=== PATIENT | female | born 1960 | race Caucasian/White ===

== ENCOUNTER → 2020-06-23 08:34 | Outpatient (CLI) | payer BC, SELFPAY ==
--- NOTE | ~2020-06-23 | MR_ITS ---
EXAMINATION: MR thoracic spine wo con EXAM DATE: 06/23/2020 09:23 INDICATION: Mid thoracic pain. TECHNIQUE: Multi-sequential, multiplanar MR images of the thoracic spine were obtained without contra st. Sagittal T1, T2, T2 fat saturation, axial T2 weighted images reviewed. Comparison is made to gregg or examination from 08/05/2018. FINDINGS: Again there is mild to moderate chronic compression fracture of L1 at the superior endplate . Cervicothoracic vertebral body heights are maintained. There is mild mid and lower thoracic disc di sease with small bulges and protrusions, but no appreciable central canal stenosis. The neural forami na are also widely patent. Mild diffuse thoracic facet arthropathy. The spinal cord signal intensity and intrinsic morphology is normal. Paraspinal soft tissue is unremarkable. IMPRESSION: 1. Mild thoracic spondylosis. 2. Chronic L1 mild to moderate compression unchanged. Reviewed, dictated and finalized at location A. [employer] PROJECTIONIST
== END ==
PROVIDERS: PCP Internal Medicine; Visit Provider Nurse Practitioner Family
DX: M54.6 Pain in thoracic spine (principal); M47.814 Spondylosis without myelopathy or radiculopathy, thoracic region
CPT/HCPCS: 72146

== ENCOUNTER 2022-01-30 00:44 | Day surgery (SDC) | payer BC, SELFPAY ==
[2022-01-11 13:45] VITALS: BMI 22.6
--- NOTE | 2022-01-29 15:34 | P.HP_ITS ---
History of Present Illness History of Present Illness Consent: Risks, benefits, and alternatives have been discussed and questions answered. Patient agrees to proceed with procedure. Chief complaint: hx colon polyps Narrative: Zhanna Perla is a 61 year old female referred for colon cancer screening. She had an adenomatous polyp removed about 7 years ago. Review of Systems Review of Systems: All systems reviewed & are unremarkable except as noted in HPI and below PMFSH Past Medical History Medical History Age-related osteoporosis without current pathological fracture Allergies LISET positive (~05/2020) Degenerative joint disease of cervical and lumbar spine Head ache Inflammatory arthritis Osteoporosis Restless leg syndrome Surgical History Surgical History H/O wrist surgery Family History Family History Mother Failure to thrive Father Heart disease Congestive heart failure Sibling Heart disease Social History Social History Smoking status: Former smoker Alcohol intake: never Substance use: current Substance use type: other Other substance usage details: [facility] Living arrangements: with family Spiritual care concerns: No Meds Home Medications and Allergies Home Medications Medication Instructions Recorded Confirmed Type alendronate 70 mg tablet 70 mg PO WEEKLY 01/21/20 01/11/22 History calcium ohk-J5-S-mag 1 tablet PO BID 01/21/20 01/11/22 History vj-tsjbzf-tjdcrc 250 mg calcium-500 unit tablet diphenhydramine HCl 25 mg capsule 25 mg PO TID PRN Itching 01/21/20 01/11/22 History gabapentin 600 mg tablet 600 mg PO BID #180 tabs 10/18/21 01/11/22 Rx methocarbamol 750 mg tablet 750 mg PO TID PRN muscle spasm #90 10/18/21 01/11/22 Rx tabs diclofenac sodium 50 mg 50 mg PO BID #60 tabs 11/06/21 01/11/22 Rx tablet,delayed release Allergies Allergy/AdvReac Type Severity Reaction Status Date / Time No Known Allergies Allergy Verified 01/30/22 06:25 Exam Resp: Auscultation: clear to auscultation bilaterally Cardio: Rate: regular rate Rhythm: regular rhythm GI: GI Palp: Yes Soft to palpation and No Tenderness to palpation present (GI) Assessment and Plan Assessment and plan (1) Colon cancer screening: Code(s): Z12.11 - Encounter for screening for malignant neoplasm of colon Status: Acute Assessment and Plan: Colonoscopy with possible biopsy or polypectomy or cautery or injection of substances.
[2022-01-30 06:25] VITALS: BP 127/71; PULSE 75; RESP 18; TEMP 36.2; O2SAT 100
[2022-01-30] MEDS: LACTATED RINGERS 1,000 ML 150 ML IV CONT (06:44)
--- NOTE | 2022-01-30 07:20 | P.PNAN_ITS ---
Anes - Initial Pre Proc Eval Procedure: Operation Date: 01/30/22 07:30 Proposed Procedures p Screening Colonoscopy - Alfredo Haywood MD Date/Time: 01/30/22 07:20 Surgeon: Alfredo Haywood MD Pre Op Diagnosis: hx colon polyps Patient Data Age: 61 Gender: F Height: 1.68 m Weight: 64.6 kg Last Vital Signs Temp 97.1 F L 01/30/22 06:25 Pulse 75 01/30/22 06:25 Resp 18 01/30/22 06:25 BP 127/71 01/30/22 06:25 Pulse Ox 100 01/30/22 06:25 O2 Del Method Room Air 01/30/22 06:25 Allergies Allergy/AdvReac Type Severity Reaction Status Date / Time No Known Allergies Allergy Verified 01/30/22 06:25 Home Medications Medication Instructions Recorded Confirmed Type alendronate 70 mg tablet 70 mg PO WEEKLY 01/21/20 01/11/22 History calcium izy-E8-Q-mag 1 tablet PO BID 01/21/20 01/11/22 History ys-onwtqj-pfaalb 250 mg calcium-500 unit tablet diphenhydramine HCl 25 mg capsule 25 mg PO TID PRN Itching 01/21/20 01/11/22 History gabapentin 600 mg tablet 600 mg PO BID #180 tabs 10/18/21 01/11/22 Rx methocarbamol 750 mg tablet 750 mg PO TID PRN muscle spasm #90 10/18/21 01/11/22 Rx tabs diclofenac sodium 50 mg 50 mg PO BID #60 tabs 11/06/21 01/11/22 Rx tablet,delayed release Patient hx anesthesia problems: none Family hx anesthesia problems: none Results Review: All pre-operative results and documents have been reviewed as part of the pre- operative evaluation. [facility] Past Medical History Medical History Age-related osteoporosis without current pathological fracture Allergies LISET positive (~05/2020) Degenerative joint disease of cervical and lumbar spine Head ache Inflammatory arthritis Osteoporosis Restless leg syndrome Surgical History Surgical History H/O wrist surgery Family History Family History Mother Failure to thrive Father Heart disease Congestive heart failure Sibling Heart disease Social History Social History Smoking status: Former smoker Alcohol intake: never Substance use: current Substance use type: other Other substance usage details: [employer] Living arrangements: with family Spiritual care concerns: No Anes - Eval Final PreProcedure Day of Procedure 01/30/22 07:20 Patient weight: normal Heart: regular rate and rhythm Lungs: clear to auscultation Airway: Mallampati scale class II Neurological: alert and oriented Last oral intake: >/= 8 hours ASA classification: II Emergent: no Anesthetic plan: proceed Anesthesia type and monitoring: general GIVS and standard monitoring Results Review: All pre-operative results and documents have been reviewed as part of the pre- operative evaluation. Informed Consent: The patient's anesthetic plan and its attendant risks and benefits were discussed with the patient/family/POA. Questions were solicited and answers provided to the satisfaction of the patient/family/POA.
[2022-01-30 07:50] VITALS: BP 109/55; PULSE 74; RESP 17; O2SAT 98
[2022-01-30 08:00] VITALS: BP 116/64; PULSE 72; RESP 20; O2SAT 100
[2022-01-30 08:08] VITALS: BP 108/59; PULSE 70; RESP 23; O2SAT 100
== END 2022-01-30 08:21 | disposition home or self-care (01) ==
PROVIDERS: PCP Internal Medicine; Visit Provider Internal Medicine Gastroenterology
PROC: 0DJD8ZZ Inspection of Lower Intestinal Tract, Via Natural or Artificial Opening Endoscopic (ICD-10-PCS; CPT 45378; principal; 2022-01-30 07:30)
DX: Z12.11 Encounter for screening for malignant neoplasm of colon (principal); Z86.010 Personal history of colon polyps; M81.0 Age-related osteoporosis without current pathological fracture; G25.81 Restless legs syndrome; M47.812 Spondylosis without myelopathy or radiculopathy, cervical region; M47.816 Spondylosis without myelopathy or radiculopathy, lumbar region
CPT/HCPCS: 45378; J2704; J7120

== ENCOUNTER 2023-05-24 08:04 | Outpatient (CLI) | payer BC, SELFPAY ==
--- NOTE | 2023-05-24 08:27 | ECG_ITS ---
Measurements Intervals [place] Rate: 79 P: 66 [place]: 112 QRS: 55 QRSD: 81 T: 42 QT: 364 QTc: 418 Interpretive Statements SINUS RHYTHM WITH SHORT [place] INTERVAL BASELINE WANDER- V1-V2 BORDERLINE ECG NO PREVIOUS ECG AVAILABLE FOR COMPARISON Electronically Signed On 05-24-2023 15:11:18 [employer] SAL[employer] by Parth Thomas D.O.
== END 2023-05-24 08:05 | disposition home or self-care (01) ==
PROVIDERS: PCP Internal Medicine; Visit Provider Podiatrist Foot & Ankle Surgery
DX: Z01.818 Encounter for other preprocedural examination (principal); R94.31 Abnormal electrocardiogram [ECG] [EKG]
CPT/HCPCS: 93005

== ENCOUNTER 2023-06-25 08:16 | Outpatient (CLI) | payer BC, SELFPAY ==
--- NOTE | ~2023-06-25 | US_ITS ---
EXAMINATION: US abdomen limited DATE: 06/25/2023 08:37 INDICATION: Elevated liver enzymes TECHNIQUE: Multiple grayscale and Doppler ultrasound images of the abdomen were obtained. COMPARISON: None available FINDINGS: The head, body, and tail of the pancreas are normal. The liver is normal with normal echoge nicity and echotexture. No surface nodularity. Normal hepatopetal flow in the main portal vein. The g allbladder is normal with no abnormal wall thickening, pericholecystic fluid or stones. The normal co mmon bile duct measures 5 mm. There was no sonographic Sanches sign. IMPRESSION: 1. No sonographic correlate for the patient's symptoms. Reviewed, dictated and finalized at location B. CHER
== END 2023-06-25 08:17 | disposition home or self-care (01) ==
LOC: ANHIMG 08:18
PROVIDERS: PCP Internal Medicine; Visit Provider Internal Medicine Gastroenterology
DX: R74.8 Abnormal levels of other serum enzymes (principal)
CPT/HCPCS: 76705

== ENCOUNTER 2024-01-14 08:59 | Outpatient (CLI) | payer BC, SELFPAY ==
[2024-01-14 09:45] LABS: Alanine Aminotransferase 30 U/L (6-35); Albumin Level 4.3 g/dL (3.5-5.1); Alkaline Phosphatase 80 U/L (38-126); Aspartate Amino Transferase 30 U/L (14-36); Bilirubin,Total 0.4 mg/dL (0.2-1.3)
== END 2024-01-14 09:00 | disposition home or self-care (01) ==
LOC: ANHLAB 09:01
PROVIDERS: PCP Internal Medicine; Visit Provider Internal Medicine Gastroenterology
DX: R74.8 Abnormal levels of other serum enzymes (principal)
CPT/HCPCS: 36415; 80076

== ENCOUNTER 2024-02-06 00:32 | Inpatient (IN) | payer BC, SELFPAY ==
[2024-02-06] VITALS (34 sets, daily range): BP systolic 104–158; BP diastolic 56–104; PULSE 68–109; RESP 12–20; TEMP 36.3–36.7; O2SAT 97–100; BMI 24.7
--- NOTE | 2024-02-06 | ECHO_ITS ---
Patient Info Name: Zhanna Perla Age: 63 years : 1960 Gender: Female Ht: 65 in Wt: 153 lbs BSA: 1.80 m2 HR: 76 bpm Heart Rhythm: Sinus Rhythm Technical Quality: Fair Exam Date: 02/06/2024 3:38 PM Exam Location: Echo Lab Patient Status: Inpatient Admit Date: 02/06/2024 Staff Ordering Physician: Gregory Massey MD ([facility]) Screwhead Polisher: Ever Horn RDCS Attending Provider: Sierra Howard MD Exam Type: CA echo doppler color flow Study Info Indications - ACS Complete two-dimensional, color flow and Doppler transthoracic echocardiogram is performed. Summary 1. Complete two-dimensional, color flow and Doppler transthoracic echocardiogram is performed. 2. Left ventricular chamber dimension is normal. 3. Left ventricular systolic function is normal, estimated at 65-70%. 4. Right ventricular chamber dimension is normal. 5. Right ventricular systolic function is normal. 6. There is mild to moderate aortic valve regurgitation. Left Ventricle Left ventricular chamber dimension is normal. Left ventricular systolic function is normal, estimated at 65-70%. There is no increased left ventricular wall thickness. Left ventricular septal wall motion is normal. The left ventricular diastolic function is normal. Right Ventricle Right ventricular chamber dimension is normal. Right ventricular systolic function is normal. Left Atria Left atrial chamber dimension is normal. Right Atria Right atrial chamber dimension is normal. Aortic Valve The aortic valve is trileaflet. There is no aortic valve sclerosis. There is no aortic valve stenosis. There is mild to moderate aortic valve regurgitation. Pulmonic Valve The pulmonic valve is not well visualized. There is no pulmonic valve stenosis. There is no pulmonic regurgitation. Mitral Valve The mitral valve has normal leaflets. There is no mitral valve stenosis. There is no mitral valve regurgitation. Tricuspid Valve The tricuspid valve leaflets are normal. There is no significant tricuspid valve stenosis. There is no tricuspid valve regurgitation. No pulmonary hypertension, estimated pulmonary arterial systolic pressure is 26 mmHg. Pericardium/Pleural The pericardium appears normal. There is no pericardial effusion. Inferior Vena Cava Normal inferior vena cava with >50% collapse upon inspiration consistent with normal right atrial pressure, 10 mmHg. Aorta The aortic root size at the sinus of Valsalva is normal. The prox ascending aorta size is normal. Left Ventricular Outflow Tract Name Value Normal LVOT 2D LVOT Diameter 1.8 cm LVOT Doppler LVOT Peak Gradient 6 mmHg LVOT Mean Gradient 3 mmHg LVOT VTI 31 cm LVOT VTI/AV VTI Ratio 1.0 LVOT Stroke Volume 77 ml LVOT CO 5.8 l/min LVOT CI 3.2 l/min/m2 Mitral Valve Name Value Normal MV
--- NOTE | ~2024-02-06 | CT_ITS ---
CT of the Abdomen and Pelvis: Indication: Abdominal pain Technique: 2.5 mm axial scans were obtained through the abdomen and pelvis following intravenous adm inistration of 100 cc of Omnipaque 350. Dose reduction technique was used on this scan by utilizing a utomated exposure control and iterative reconstruction technique. The dose-length product (DLP) was 3 91.43 mGy-cm. Findings: Scans through the lung bases demonstrate 5 mm right lower lobe pulmonary nodule (axial gaby ge 15). Partially imaged probable small pericardial effusion present. The liver, spleen, pancreas, gallbladder, adrenals and kidneys are within normal limits. No evidence of aortic aneurysm. No lymphadenopathy. No bowel obstruction or bowel wall thickening. There is no evidence to suggest acute appendicitis. Images through the pelvis were performed. Urinary bladder unremarkable. No adnexal mass seen. No asci juanita. Chronic L1 compression deformity present. Impression: Partially imaged probable small pericardial effusion. No other acute abnormality seen. 5 mm right lower lobe pulmonary nodule. According to Fleischner Society criteria, for a low-risk mario ent, no further follow-up required. For a high-risk patient, consider 12 month follow-up CT. Probable chronic L1 compression deformity. Reviewed, dictated and finalized at location . Impression: Partially imaged probable small pericardial effusion. No other acute abnormality seen. 5 mm right lower lobe pulmonary nodule. According to Fleischner Society criteri a, for a low-risk patient, no further follow-up required. For a high-risk patie nt, consider 12 month follow-up CT. Probable chronic L1 compression deformity.
--- NOTE | ~2024-02-06 | XR_ITS ---
Clinical Indication: Chest pain PA and lateral views of the chest: Comparison: 06/27/2018 Findings: The lungs are clear, without evidence of focal consolidation or pleural effusion. Possible COPD. Cardiomediastinal silhouette is within normal limits. Bones and soft tissues are unremarkable. Impression: Possible COPD. Clear lungs. Reviewed, dictated and finalized at location . Impression: Possible COPD. Clear lungs.
--- NOTE | 2024-02-06 00:33 | ECG_ITS ---
Test Date: 2024-02-06 00:39:44 Measurements Intervals [place] Rate: 111 P: 59 [place]: 145 QRS: 53 QRSD: 73 T: 48 QT: 336 QTc: 458 Interpretive Statements SINUS TACHYCARDIA MODERATE ST DEPRESSION [0.05+ mV ST DEPRESSION] No previous ECG available for comparison Electronically Signed On 02-06-2024 10:40:28 CDT by Gregory Massey M.D.
[2024-02-06 00:59] LABS: Basophils Absolute Auto 0.1 K/mm3 (0.0-0.1); Basophils Percent Auto 0.8 % (0.2-1.2); Eosinophils Absolute Auto 0.2 K/mm3 (0-0.3); Eosinophils Percent Auto 2.7 % (0-4.4); Hematocrit 40.1 % (37.0-47.0); Hemoglobin 13.7 g/dL (12.0-15.0); Immature Granulocyte Absolute 0.03 K/mm3 (0.00-0.031); Immature Granulocyte Percent A 0.5 % (0-0.5); Lymphocytes Absolute Auto 2.08 K/mm3 (0.9-3.2); Lymphocytes Percent Auto 32.8 % (18.3-44.2); Mean Corpuscular HGB Conc 34.2 g/dl (32-36); Mean Corpuscular Hemoglobin 30.9 pg (26-34); Mean Corpuscular Volume 90.3 fl (80-100); Mean Platelet Volume 8.7 fl (7.4-10.4); Monocytes Absolute Auto 0.9 K/mm3 (0.1-0.6); Monocytes Percent Auto 14.4 % (2.6-8.5); Neutrophils Absolute Auto 3.1 K/mm3 (1.3-6.7); Neutrophils Percent Auto 48.8 % (45.5-73.1); Platelet Count Result 272 k/mm3 (150-375); Red Blood Count 4.44 M/mm3 (4.2-5.4); White Blood Count 6.3 K/mm3 (4.5-10.0)
[2024-02-06 01:12] LABS: Prothrombin Time 13.5 Seconds (11.1-14.7)
[2024-02-06 01:13] LABS: Partial Thromboplastin Time 24.8 Seconds (22.3-36.8)
[2024-02-06 01:32] LABS: Troponin I < 0.012 ng/mL (0.000-0.034)
[2024-02-06 01:40] LABS: Alanine Aminotransferase 30 U/L (6-35); Albumin Level 4.4 g/dL (3.5-5.1); Alkaline Phosphatase 104 U/L (38-126); Anion Gap 9 mmol/L (4-12); Aspartate Amino Transferase 30 U/L (14-36); Bilirubin,Total 0.4 mg/dL (0.2-1.3); Blood Urea Nitrogen 10 mg/dL (7-17); Calcium 9.1 mg/dL (8.4-10.2); Carbon Dioxide 25 mmol/L (22-30); Chloride 103 mmol/L (98-107); Estimated CRCL calculation 58 ml/min; Estimated Glomerular Filt Rate > 60; Glucose 55 mg/dL (65-110); Lipase 82 U/L (23-300); Potassium 3.7 mmol/L (3.4-5.0); Sodium 137 mmol/L (137-145)
--- NOTE | 2024-02-06 01:45 | PC.NURSE ---
Patient given some crackers and juice, blood sugar 83.
[2024-02-06 01:46] LABS: Glucose Point of Care 83 mg/dl (65-105)
--- NOTE | 2024-02-06 02:24 | ED.GENADULT ---
HPI - General Adult General Chief complaint: Chest Pain Stated complaint: Chest pain Time Seen by Provider: 02/06/24 01:40 History of Present Illness HPI narrative: Patient 63-year-old female who presents emergency department with chief complaint of chest pain. Patient reports that she woke up started having pain in her chest patient reports that it is significantly improved the patient reports no prior history of cardiac disease but also reports he has discomfort in her abdomen Related Data Home Medications Medication Instructions Recorded Confirmed alendronate 70 mg tablet 70 mg PO WEEKLY 01/21/20 01/20/24 calcium 250 mg-D3 500 unit-vit K 1 tablet PO BID 01/21/20 01/20/24 25 lon-yzxxfqzso-yhxazo-borate tablet Allergies Allergy/AdvReac Type Severity Reaction Status Date / Time No Known Allergies Allergy Verified 01/20/24 10:28 Review of Systems Review of Systems: A 10 system review of systems was completed on the patient and is negative except for what is stated in the HPI. Nursing and ancillary documentation was reviewed. [facility] Past Medical History Medical History Age-related osteoporosis without current pathological fracture Allergies LISET positive (~05/2020) Degenerative joint disease of cervical and lumbar spine Elevated liver enzymes Head ache Inflammatory arthritis Osteoporosis Restless leg syndrome Undifferentiated connective tissue disease Surgical History Surgical History H/O wrist surgery Family History Family History Mother Failure to thrive Father Heart disease Congestive heart failure Sibling Heart disease Social History Social History Smoking status: Former smoker Second hand tobacco smoke exposure: Yes Alcohol intake: current Substance use: current Substance use type: marijuana and other Other substance usage details: [employer] Do You Feel Safe in your Home?: Yes Lack of Transportation: No Lack of Food: Never True Current Housing: I Have Housing Concerned About Future Housing: No Difficulty Paying Gas/Electric Bills: No Difficulty Paying for Meds: No Currently Unemployed: No Education: High School Diploma/GED Difficulty w/ Childcare or Family Care: No Living arrangements: with family Occupation/Education: occupation Additional occupation/education comments: [employer] Gender identity (if verbalized by the patient): Female Spiritual care concerns: No Exam Narrative: GENERAL: Well-appearing, well-nourished, and in no acute distress. HEAD: Normocephalic, atraumatic. EYES: PERRLA and EOMI. ENT: Nares clear, no rhinorrhea or epistaxis. Mucous membranes moist. NECK: Supple. CHEST: Clear to auscultation. No respiratory distress. HEART: Regular rate and rhythm. No murmur heard. Normal peripheral pulses. ABDOMEN: Soft, diffusely tender throughout the abdomen, nondistended, normal active bowel sounds. EXTREMITIES: Normal range of motion. No edema. SKIN: Warm, dry, no rash. NEURO: No focal deficits. Alert and oriented x3. PSYCH: Normal mood and affect. Course Vital Signs Vital signs: Vital Signs Temperature 36.3 C L 02/06/24 00:48 Pulse Rate 109 H 02/06/24 00:48 Respiratory Rate 20 02/06/24 00:48 Blood Pressure 158/104 H 02/06/24 00:48 Pulse Oximetry 100 02/06/24 00:48 Temperature 36.3 C L 02/06/24 00:48 Pulse Rate 90 02/06/24 05:48 Respiratory Rate 15 02/06/24 05:48 Blood Pressure 130/78 02/06/24 05:48 Pulse Oximetry 100 02/06/24 05:48 Oxygen Delivery Room Air 02/06/24 01:54 Medical Decision Making [facility] Narrative Medical decision making narrative: Differential diagnosis includes NSTEMI, STEMI
--- NOTE | 2024-02-06 03:14 | ECG_ITS ---
Test Date: 2024-02-06 03:19:10 Measurements Intervals [place] Rate: 89 P: 61 [place]: 131 QRS: 57 QRSD: 68 T: 65 QT: 347 QTc: 423 Interpretive Statements SINUS RHYTHM Compared to ECG 02/06/2024 00:39:44 Sinus tachycardia no longer present ST (T wave) deviation no longer present Electronically Signed On 02-06-2024 10:40:58 CDT by Gregory Massey M.D.
[2024-02-06 03:58] LABS: Troponin I 0.052 ng/mL (0.000-0.034)
--- NOTE | 2024-02-06 06:18 | ECG_ITS ---
Test Date: 2024-02-06 06:21:21 Measurements Intervals [place] Rate: 84 P: 57 AL: 125 QRS: 45 QRSD: 81 T: 37 QT: 373 QTc: 442 Interpretive Statements SINUS RHYTHM WITH SINUS ARRHYTHMIA Compared to ECG 02/06/2024 03:19:10 No significant changes Electronically Signed On 02-06-2024 10:41:21 CDT by Gregory Massey M.D.
[2024-02-06 06:50] LABS: Troponin I 0.142 ng/mL (0.000-0.034)
--- NOTE | 2024-02-06 07:42 | ADMGEN ---
This patient, Zhanna Perla, was admitted to IMU Room 205-01. Patient/family oriented to hospital policies and general routines including ID bracelet, bed and alarms, visiting hours, pain management, procedures, bathroom and other care routines, personal items, smoking policy, room service/diet, and visiting hours. Information on how to activate the Rapid Response Team has been discussed. Patient/Family are encouraged to report perceived risks to care and to ask questions if they do not understand what they are told or what they should do.
--- NOTE | 2024-02-06 08:00 | PM.IMHP ---
H&P: HPI History of Present Illness Date/Time: 02/06/24 08:00 Chief Complaint: Chest pain Narrative: 63 year old female with past medical history of osteoporosis, DJD, inflammatory arthritis, and RLS presents to the hospital from home with chest pain. She states that the chest pain woke her from her sleep at 12:30 am. She described it as a constant heavy tightness to her central chest with associated shortness of breath and feeling wiped out . She denies diaphoresis or radiation. The chest pain continued for extended period of time and was worsening in severity which prompted the patient to go to the hospital. Patient had a similar episode of chest pain about 1 month ago. She stated that it too was a heavy/tight feeling to the middle of her chest with associated fatigue. The episode last approximately 15 minutes before resolving without any intervention. Patient did not seek treatment. Patient notes that she will have occasional palpitations that resolve with deep breathing. She also endorses increased shortness of breath with exertion, however she related this to be deconditioned secondary to her chronic pain. Patient denies any cardiac history, but does note that her father had a heart attack in his late 50s. Patient denies any recent cough, nausea/vomiting or abdominal pain. During assessment patient states that she is still having slight chest pain but it feels more like heart burn at this point. Patient was evaluated by cardiology and is scheduled to undergo a cardiac cath later today. Returned to patients room after she had her cardiac cath. She has no complaints. Denying chest pain, shortness of breath, and palpitations. ED work up: Vitals stable. CBC and CMP unremarkable. Troponin elevated at 0.052 > 0.142. EKG 1233 sinus tach with mod st depression, EKG [address] abnormality, EKG 0621 sinus rhythm without significant changes. Chest XR: Possible COPD and clear lungs. Abdomen/pelvis CT: Partially imaged probable small pericardial effusion. No other acute abnormality seen. 5 mm right lower lobe pulmonary nodule. According to Fleischner Society criteria, for a low-risk patient, no further follow-up required. For a high-risk patient, consider 12 month follow-up CT. Probable chronic L1 compression deformity. Cardiology consulted. Review of Systems Review of Systems: All systems reviewed & are unremarkable except as noted in HPI and below PMFSH Past Medical History Medical History Age-related osteoporosis without current pathological fracture Allergies LISET positive (~05/2020) Degenerative joint disease of cervical and lumbar spine Elevated liver enzymes Head ache Inflammatory arthritis Osteoporosis Restless leg syndrome Undifferentiated connective tissue disease Surgical History Surgical History H/O wrist surgery Family History Family History Mother Failure to thrive Father Heart disease Congestive heart failure Acute myocardial infarction late 50s Sibling Heart disease Social History Social History (Updated 02/06/24 @ 09:54 by Aruna High PA-C) Social History: Patient lives at home with her . Smoking packs per day: 0.5 Smoking cigarettes per day: 10.0 Years smoked: 8 Smoking pack-years: 4.00 Smoking status: Former smoker Tobacco type: cigarettes Second hand tobacco smoke exposure: Yes Additional smoking assessment comments: Patient smoked about 1/2 from [age]. Alcohol intake: current Alcohol use details: Rare. Substance use: current Substance use type: marijuana Other substance usage details: [employer] Do You Feel Safe in your Home?: Yes Lack of Transportation: No Lack of Food: Never True Current Housing: I Have Housing Concerned About Future Willian
--- NOTE | 2024-02-06 08:39 | PM.CNCAR ---
Assessment and Plan Assessment and plan (1) Chest pain: Code(s): R07.9 - Chest pain, unspecified Status: Acute Assessment and Plan: Presents to the hospital with a chief complaint of substernal chest pain which by description is somewhat atypical. However, her troponin levels have elevated to 0.142 which raises concern for myocardial ischemia. EKG without any acute ischemic changes. She has not had an ischemic evaluation in the past. Recommendation for coronary angiogram today to define her coronary anatomy. Further recommendations to follow. She was not placed on heparin prior to my encounter with her. Will hold off on heparin for now if she is going to the cardiac cath lab technologist shortly. (2) Elevated troponin: Code(s): R79.89 - Other specified abnormal findings of blood chemistry Status: Acute Assessment and Plan: As above. History of Present Illness History of Present Illness Consult date/time: 02/06/24 08:39 Requesting physician: Sabino Kan MD Consult reason: chest pain Reason For Visit: Chest pain,elevated troponin Narrative: Zhanna Perla is a 63-year-old female admitted to the hospital with chest pain and has been found to have elevated troponin levels. This is a patient who does not have any significant medical history, no previous cardiac history. She does have a family history of coronary artery disease in her dad. She reports waking up in the middle night because of a central chest burning/tightness. She had 1 episode of chest pain similar to this about a month ago but she did not seek medical evaluation at that time because she assumed it was indigestion/heartburn. She has been given aspirin and her chest pain has improved but remains present but less intense. She reports having shortness of breath with the onset of chest pain yesterday evening but denies any diaphoresis, radiation of pain, syncope, palpitations. At the time of my evaluation she is resting comfortably in bed and does still have mild chest tightness. Review of Systems Review of Systems: All systems reviewed & are unremarkable except as noted in HPI and below PMFSH Past Medical History Medical History Age-related osteoporosis without current pathological fracture Allergies LISET positive (~05/2020) Degenerative joint disease of cervical and lumbar spine Elevated liver enzymes Head ache Inflammatory arthritis Osteoporosis Restless leg syndrome Undifferentiated connective tissue disease Surgical History Surgical History H/O wrist surgery Family History Family History Mother Failure to thrive Father Heart disease Congestive heart failure Sibling Heart disease Social History Social History Smoking status: Former smoker Second hand tobacco smoke exposure: Yes Alcohol intake: current Substance use: current Substance use type: marijuana and other Other substance usage details: [employer] Do You Feel Safe in your Home?: Yes Lack of Transportation: No Lack of Food: Never True Current Housing: I Have Housing Concerned About Future Housing: No Difficulty Paying Gas/Electric Bills: No Difficulty Paying for Meds: No Currently Unemployed: No Education: High School Diploma/GED Difficulty w/ Childcare or Family Care: No Living arrangements: with family Occupation/Education: occupation Additional occupation/education comments: [employer] Gender identity (if verbalized by the patient): Female Spiritual care concerns: No Meds Home Medications and Allergies Home Medications Medication Instructions Recorded Confirmed Type alendronate 70 mg tablet 70 mg PO WEEKLY 01/21/20 02/06/24 History calcium 250 mg-D3 50
[2024-02-06] MEDS: ASPIRIN 81 MG CHEWABLE TABLET PO (09:54)
--- NOTE | 2024-02-06 10:32 | WPDMODSED ---
Moderate Sedation Note-Pt Data Patient Data Allergies Allergy/AdvReac Type Severity Reaction Status Date / Time No Known Allergies Allergy Verified 01/20/24 10:28 Home Medications Medication Instructions Recorded Confirmed Type alendronate 70 mg tablet 70 mg PO WEEKLY 01/21/20 02/06/24 History calcium 250 mg-D3 500 unit-vit K 1 tablet PO BID 01/21/20 01/20/24 History 25 nvb-lcfdmbcql-ggaeef-borate tablet methocarbamol 750 mg tablet 750 mg PO TID PRN muscle spasm #90 09/04/23 01/20/24 Rx tabs duloxetine 30 mg capsule,delayed 30 mg PO BID #60 caps 09/22/23 01/20/24 Rx release hydroxychloroquine 200 mg tablet 400 mg PO DAILY #60 tabs 09/22/23 01/20/24 Rx (Plaquenil) gabapentin 600 mg tablet 600 mg PO BID 02/06/24 02/06/24 History Current Medications: Active Medications Aspirin (Aspirin 81 Mg Chewable Tablet) 81 mg PO DAILY@0800 XIAO Last Admin: 02/06/24 09:54 Dose: 81 mg Ondansetron HCl (Ondansetron Inj 4 Mg/2 Ml Vial) 4 mg IV PUSH Q4H PRN PRN Reason: Nausea Perflutren Lipid Microsphere (Perflutren Lipid Microspheres 1.5 Ml Vial Diluted To 10 Ml Total Volume) 0 ml IV PUSH ONCE PRN; Protocol PRN Reason: adequate visualization Stop: 02/09/24 10:12 Sedation/Anesthesia: No previous sedation/anesthesia problems (including family history). [facility] Past Medical History Medical History Age-related osteoporosis without current pathological fracture Allergies LISET positive (~05/2020) Degenerative joint disease of cervical and lumbar spine Elevated liver enzymes Head ache Inflammatory arthritis Osteoporosis Restless leg syndrome Undifferentiated connective tissue disease Surgical History Surgical History H/O wrist surgery Family History Family History Mother Failure to thrive Father Heart disease Congestive heart failure Acute myocardial infarction late 50s Sibling Heart disease Social History Social History (Updated 02/06/24 @ 09:54 by Aruna High PA-C) Social History: Patient lives at home with her . Years smoked: 8 Smoking status: Former smoker Tobacco type: cigarettes Second hand tobacco smoke exposure: Yes Additional smoking assessment comments: Patient smoked about 1/2 from 19-27. Alcohol intake: current Alcohol use details: Rare. Substance use: current Substance use type: marijuana Other substance usage details: THC GUMMIES Do You Feel Safe in your Home?: Yes Lack of Transportation: No Lack of Food: Never True Current Housing: I Have Housing Concerned About Future Housing: No Difficulty Paying Gas/Electric Bills: No Difficulty Paying for Meds: No Currently Unemployed: No Education: High School Diploma/GED Difficulty w/ Childcare or Family Care: No Living arrangements: with family Occupation/Education: occupation Additional occupation/education comments: [employer] Gender identity (if verbalized by the patient): Female Spiritual care concerns: No Mod Sed Physical Exam Physical Exam Pre Procedural Exam: Normal: Appearance, Throat, Airway, Lungs, Heart Rate and Heart Rhythm Hours since solid foods: 12 Hours since liquid intake: 4 Mallampati Classification: class II Internal Medicine - PN: Obj Da Vital Signs Vital Signs: Vital Signs - 24 hr 02/06/24 00:48 02/06/24 01:54 02/06/24 01:54 Temperature 36.3 C L Pulse Rate 109 H 89 Respiratory Rate 20 18 Blood Pressure 158/104 H 131/79 Pulse Oximetry 100 100 100 Oxygen Delivery Room Air 02/06/24 02:35 02/06/24 05:48 02/06/24 07:00 Temperature Pulse Rate 88 90 81 Respiratory Rate 19 15 16 Blood Pressure 130/75 130/78 125/70 Pulse Oximetry 100 100 100 Oxygen Delivery 02/06/24 07:34 Temperature 36.4 C L Pulse R
--- NOTE | 2024-02-06 11:06 | WPDCARDPROC ---
Cardiac Cath Procedure Note Date of procedure:: 02/06/24 Performing physician:: CATHETERIZATION LABORATORY REPORT Procedure Date: 02/06/2024 Referring Physician: Dr. High Anesthesia: Versed and Fentanyl were ordered and given in my presence at 1045, procedure ended at 1058. Supervision of nurse monitored moderate sedation with Versed and Fentanyl was provided for 13 minutes. Pre-op Diagnosis: Myocardial injury Post-op Diagnosis: Myocardial injury Procedure(s): Left heart catheterization with coronary angiography Access Site: Right radial artery. TR band used for hemostasis Brief History and Clinical Indications: 63 yo woman with inflammatory arthritis woke up with chest pain whose clinical presentation was concerning for NSTEMI All risks, benefits and alternatives to left heart catheterization with or without percutaneous coronary intervention was discussed at length with the patient. Risk of complications including but not limited to bleeding, infection, arrhythmia, stroke, worsening kidney function, blood loss, groin hematoma, limb loss, emergency coronary artery bypass grafting, and even were discussed with the patient and all questions were answered. The patient understood and wished to proceed. Time out called, patient name, date of , medical record number, allergies, procedure performed, identify [employer] Program Director, patient and staff member concurred with accurate data, procedure carried on. Findings: LEFT HEART CATHETERIZATION FINDINGS: 1. Left main: The left main coronary artery is widely patent without any significant obstructive disease. 2. Left anterior descending: The LAD gives off 1 large diagonal branch, both of which have mild luminal irregularities without any significant obstructive angiographic disease. 3. Left circumflex: The left circumflex artery and the main marginal branches have mild luminal irregularities without any significant obstructive angiographic disease. Left circumflex is the dominant vessel. 4. Right coronary artery: The RCA has mild luminal irregularities without any significant obstructive angiographic disease. 5. Left ventricle: A. End-diastolic pressure 18 mmHg. B. LV gramshows preserved LV systolic function C. No significant gradient across aortic valve on catheter pullback. 6. Opening AO pressure 141/88 (114) and closing AO pressure 101/73 (88) Description of Procedure: Informed consent signed and placed in the chart. Patient transferred to cardiac cath lab technologist room. Prepped and draped in usual sterile fashion. 2% lidocaine injected subcutaneously in right wrist area. 22-gauge venipuncture catheter used to access the right radial artery with the Seldinger technique. 6-FR slender sheath placed in right radial artery. Nitroglycerin 200mcg, Verapamil 2.5mg, and Heparin 5000U was given intraarterial through the sheath. J wire advanced under fluoroscopy 5Fr TIG diagnostic catheter engaged Left Main Coronary Artery. 5Fr TIG diagnostic catheter engaged Right Coronary Artery Multiple orthogonal angiogram obtained and reviewed 5Fr Pigtail diagnostic catheter crossed aortic valve to obtain LVEDP, LV angiogram performed. Hemostasis was achieved by application of TR band. Assessment: No obstructive epicardial disease Post Operative Condition: Stable No significant blood loss Disposition: Floor Plan: Monitor on floors ASA 81mg daily Gregory Massey Interventional Cardiology
--- NOTE | 2024-02-06 15:43 | PC.NURSE ---
Pt returned to 205-1 from skilled labor approx. 1455. Right radial site bandaged, c/d/i. Amy PRITCHETT from skilled labor at bedside, verified site and pulse to establish baseline
[2024-02-06 17:41] LABS: Cholesterol 170 mg/dL (0-200); HDL Direct 53 mg/dL; Triglycerides 66 mg/dL (<150)
[2024-02-06 17:52] LABS: LDL Cholesterol Direct 81 mg/dL
[2024-02-06] MEDS: GABAPENTIN 300 MG CAPSULE 600 MG PO (18:09)
[2024-02-06] MEDS: DULoxetine HCL 30 MG CAPSULE.DR PO (18:09)
[2024-02-06] MEDS: methocarbamoL 750 MG TABLET PO (18:33)
[2024-02-06] MEDS: CALCIUM CARBONATE (TUMS) 500 MG (200 MG ELEMENTAL) PO (21:54)
[2024-02-06] MEDS: PANTOPRAZOLE 40 MG TABLET PO (21:54)
[2024-02-07] VITALS (11 sets, daily range): BP systolic 117–131; BP diastolic 62–68; PULSE 70–86; RESP 15–20; TEMP 36.3–36.6; O2SAT 97–100
--- NOTE | 2024-02-07 08:32 | PM.IMPN ---
Progress Note: A&P Assessment and Plan (1) Chest pain: Code(s): R07.9 - Chest pain, unspecified Status: Acute Assessment and Plan: Patient presented to the hospital for constant heavy/tightness to her chest that was worsening in severity. - Troponin 0.052 > 0.142 - EKG 1233 sinus tach with mod st depression, EKG [address] abnormality, EKG 0621 sinus rhythm without significant changes. - Chest XR: Possible COPD and clear lungs. - Abdomen/pelvis CT: Partially imaged probable small pericardial effusion. No other acute abnormality seen. 5 mm right lower lobe pulmonary nodule. According to Fleischner Society criteria, for a low-risk patient, no further follow-up required. For a high-risk patient, consider 12 month follow-up CT. Probable chronic L1 compression deformity. - Cardiology consulted, appreciate assistance and recommendations Plan for coronary angiogram on 02/05 s/p cardiac cath with Dr. Massey and per his note there was no obstructive epicardial disease ASA 81 mg daily Echo ordered - Diet: heart healthy s/p cath - Monitor vital signs, I&Os, chest pain, shortness of breath and patient is a fall risk - Monitor PTT, serial troponins, Serum electrolytes, and cbc - Keep serum potassium >4 and keep magnesium >2 (2) Elevated troponin: Code(s): R79.89 - Other specified abnormal findings of blood chemistry Status: Acute Assessment and Plan: see above #1 (3) Inflammatory arthritis: Code(s): M19.90 - Unspecified osteoarthritis, unspecified site Status: Acute Assessment and Plan: Chronic, continue home medications. - Duloxetine 30 mg BID - Gabapentin 600 mg BID - Methocarbamol 750 mg TID PRN - monitor Plan noted BS 55 this am on BMP. pt is not known diabetic. will add AccuCheck to monitor it closer and hypoglycemia protocol Time Spent With Patient Time with patient: Greater than 35 minutes Subjective Date/time seen: 02/07/24 08:32 Interval history: Chest pain Narrative retrieved from H/P: 63 year old female with past medical history of osteoporosis, DJD, inflammatory arthritis, and RLS presents to the hospital from home with chest pain. She states that the chest pain woke her from her sleep at 12:30 am. She described it as a constant heavy tightness to her central chest with associated shortness of breath and feeling wiped out . She denies diaphoresis or radiation. The chest pain continued for extended period of time and was worsening in severity which prompted the patient to go to the hospital. Patient had a similar episode of chest pain about 1 month ago. She stated that it too was a heavy/tight feeling to the middle of her chest with associated fatigue. The episode last approximately 15 minutes before resolving without any intervention. Patient did not seek treatment. Patient notes that she will have occasional palpitations that resolve with deep breathing. She also endorses increased shortness of breath with exertion, however she related this to be deconditioned secondary to her chronic pain. Patient denies any cardiac history, but does note that her father had a heart attack in his late 50s. Patient denies any recent cough, nausea/vomiting or abdominal pain. During assessment patient states that she is still having slight chest pain but it feels more like heart burn at this point. Patient was evaluated by cardiology and is scheduled to undergo a cardiac cath later today. Returned to patients room after she had her cardiac cath. She has no complaints. Denying chest pain, shortness of breath, and palpitations. ED work up: Vitals stable. CBC and CMP unremarkable. Troponin elevated at 0.052 > 0.142. EKG 1233 sinus tach with mod st depression, EKG [address] abnormality, EKG 0621 sinus rhythm without significant changes. Chest XR: Possible COPD and clear lungs. Abdomen/pelvis CT: Partially imaged probable small pericardial effusion. No other
[2024-02-07] MEDS: ASPIRIN 81 MG CHEWABLE TABLET PO (08:52)
[2024-02-07] MEDS: GABAPENTIN 300 MG CAPSULE 600 MG PO (08:52)
[2024-02-07] MEDS: PANTOPRAZOLE 40 MG TABLET PO (08:52)
[2024-02-07] MEDS: DULoxetine HCL 30 MG CAPSULE.DR PO (08:52)
--- NOTE | 2024-02-07 15:08 | PM.DS ---
DS: Admitting Diagnosis Discharge Date 02/06 Admitting Diagnosis chest pain DS: Discharge Diagnosis Discharge Diagnosis (1) Chest pain: Code(s): R07.9 - Chest pain, unspecified Status: Acute Assessment and Plan: Patient presented to the hospital for constant heavy/tightness to her chest that was worsening in severity. - Troponin 0.052 > 0.142 - EKG 1233 sinus tach with mod st depression, EKG [address] abnormality, EKG 0621 sinus rhythm without significant changes. - Chest XR: Possible COPD and clear lungs. - Abdomen/pelvis CT: Partially imaged probable small pericardial effusion. No other acute abnormality seen. 5 mm right lower lobe pulmonary nodule. According to Fleischner Society criteria, for a low-risk patient, no further follow-up required. For a high-risk patient, consider 12 month follow-up CT. Probable chronic L1 compression deformity. - Cardiology consulted, appreciate assistance and recommendations Plan for coronary angiogram on 02/05 s/p cardiac cath with Dr. Massey and per his note there was no obstructive epicardial disease ASA 81 mg daily Echo ordered - Diet: heart healthy s/p cath - Monitor vital signs, I&Os, chest pain, shortness of breath and patient is a fall risk - Monitor PTT, serial troponins, Serum electrolytes, and cbc - Keep serum potassium >4 and keep magnesium >2 (2) Elevated troponin: Code(s): R79.89 - Other specified abnormal findings of blood chemistry Status: Acute Assessment and Plan: see above #1 (3) Inflammatory arthritis: Code(s): M19.90 - Unspecified osteoarthritis, unspecified site Status: Acute Assessment and Plan: Chronic, continue home medications. - Duloxetine 30 mg BID - Gabapentin 600 mg BID - Methocarbamol 750 mg TID PRN - monitor Plan noted BS 55 this am on BMP. pt is not known diabetic. will add AccuCheck to monitor it closer and hypoglycemia protocol DS: Summary Hospital Course Hospital Course: 63-year-old female admitted to the hospital with chest pain and has been found to have elevated troponin levels. She does have a family history of coronary artery disease in her dad. She reports waking up in the middle night because of a central chest burning/tightness. She had 1 episode of chest pain similar to this about a month ago but she did not seek medical evaluation at that time because she assumed it was indigestion/heartburn. She has been given aspirin and her chest pain has improved but remains present but less intense. She reports having shortness of breath with the onset of chest pain yesterday evening but denies any diaphoresis, radiation of pain, syncope, palpitations. 02/05- she had cardiac cath- No obstructive epicardial disease and echo on 02/06. Echo was unremarkable and she was ok per card to be discharge with a close f/u Time Spent with Patient Time attestation: Total time spent providing and/or coordinating discharge services: Exam Narrative: General: female in no acute respiratory distress who is nontoxic appearing, lying in bed HEENT: Normocephalic. Atraumatic. Extraocular movement intact. Sclera clear and anicteric. No facial asymmetry. Neck: Neck was supple. No dominant adenopathy, thyromegaly or masses. Chest: Lungs are clear to auscultation bilaterally. No wheezes or crackles. CV: Heart was regular rate and rhythm. S1-S2. No murmurs, gallops, or rubs. Abd: Abdomen was soft. Nontender. Nondistended. Positive bowel sounds. No organomegaly or masses. Ext: No clubbing, cyanosis, or edema. 2+ DP pulses bilaterally. Neuro: Patient is alert and oriented x4. Cranial nerves 2-12 are intact. Speech is clear. Psych: Normal mood and affect. Patient is pleasant and cooperative. Skin: Warm and dry. No rashes noted. Const: General: comfortable; No no acute distress DS: Data Data Completed and Pending Completed studies during hospitalization: chest xray, cardiac cath
[2024-02-07] MEDS: ACETAMINOPHEN 325 MG TABLET 650 MG PO (15:32)
== END 2024-02-07 16:23 | disposition home or self-care (01) | DRG 287 ==
LOC: ANHED 06:37 → ANHIMU 07:02
PROVIDERS: Internal Medicine; Student in an Organized Health Care Education/Training Program; Admitting Provider Internal Medicine; Emergency Provider Emergency Medicine; PCP Internal Medicine; Visit Provider Nurse Practitioner
PROC: 4A023N7 Measurement of Cardiac Sampling and Pressure, Left Heart, Percutaneous Approach (ICD-10-PCS; CPT 93452; principal; 2024-02-06 10:00)
DX: I5A Non-ischemic myocardial injury (non-traumatic) (principal); R07.9 Chest pain, unspecified; R79.89 Other specified abnormal findings of blood chemistry; G25.81 Restless legs syndrome; M47.812 Spondylosis without myelopathy or radiculopathy, cervical region; M47.816 Spondylosis without myelopathy or radiculopathy, lumbar region; M81.0 Age-related osteoporosis without current pathological fracture; Z87.891 Personal history of nicotine dependence
CPT/HCPCS: 36415; 71046; 74177; 80053; 80061; 82948; 83690; 84484; 85025; 85610; 85730; 93005; 93306; 93458; 99285; A9270; C1769; C1887; C1894; G0378; J1644; J2003; J2250; J2305; J3010; J7040; Q9967

== ENCOUNTER 2024-09-03 13:20 | Emergency (ER) | payer BC, SELFPAY ==
--- NOTE | ~2024-09-03 | XR_ITS ---
Clinical Indication: Cough PA and lateral views of the chest: Comparison: 02/06/2024 Findings: Focal lingular airspace opacity present. Right lung clear. Cardiomediastinal silhouette is within normal limits. Bones and soft tissues are unremarkable. Impression: Lingular atelectasis versus pneumonia. Correlate clinically. Reviewed, dictated and finalized at [facility]. Impression: Lingular atelectasis versus pneumonia. Correlate clinically.
[2024-09-03 13:29] VITALS: BP 145/80; PULSE 98; RESP 16; TEMP 36.4; O2SAT 100
--- NOTE | 2024-09-03 13:41 | ED.URI ---
HPI - URI/Sore Throat General Chief Complaint: Upper Respiratory Infection Stated Complaint: Cough Time Seen by Provider: 09/03/24 13:22 Source: patient Mode of arrival: ambulatory Limitations: no limitations History of Present Illness HPI Narrative: Patient presents to [facility] with complaints of a persistent productive green cough for 2 months. She states she has not been seen for it. She has been taking mucinex. Denies any asthma, COPD, wheezing, SOB, fever, or chills. Related Data Home Medications ?Medication ?Instructions ?Recorded ?Confirmed ?Last Taken ?Type estradiol 10 mcg vaginal insert, 10 mcg vaginal 2XW 02/06/24 09/03/24 Unknown History in a starter dose pack gabapentin 600 mg tablet 600 mg PO BID 02/06/24 09/03/24 Unknown History alendronate 70 mg tablet 70 mg PO WEEKLY 09/03/24 09/03/24 Unknown History celecoxib 200 mg capsule 200 mg PO Q24H 09/03/24 09/03/24 Unknown History hydroxychloroquine 200 mg tablet 400 mg PO DAILY 09/03/24 09/03/24 Unknown History prednisone 5 mg tablet 5 mg PO Q12H 09/03/24 09/03/24 Unknown History Allergies Allergy/AdvReac Type Severity Reaction Status Date / Time No Known Allergies Allergy Verified 09/03/24 13:25 Review of Systems Review of Systems: CONSTITUTIONAL: Denies body aches, fever, chills, or sweats. Reports EYES: Denies visual changes, redness, or discharge. ENT: Denies rhinorrhea, congestion, sore throat, or otalgia. CARDIOVASCULAR: Denies chest pain, palpitations, or edema. RESPIRATORY: Reports cough. Denies dyspnea. GASTROINTESTINAL: Denies abdominal pain, nausea, vomiting, or diarrhea. GENITOURINARY: Denies dysuria or hematuria. SKIN: Denies rash, itching, or wounds. MUSCULOSKELETAL: Denies back pain, joint pain, or myalgia. NEUROLOGIC: Denies headache, numbness, tingling, or weakness. PSYCH: Denies depression or anxiety. All systems reviewed & are unremarkable except as noted in HPI and below PMFSH Past Medical History Medical History Undifferentiated connective tissue disease Elevated liver enzymes Restless leg syndrome Degenerative joint disease of cervical and lumbar spine Age-related osteoporosis without current pathological fracture Inflammatory arthritis LISET positive (~05/2020) Osteoporosis Head ache Allergies Surgical History Surgical History H/O wrist surgery Family History Family History Mother Failure to thrive Father Heart disease Congestive heart failure Acute myocardial infarction late 50s Sibling Heart disease Social History Social History Social History: Patient lives at home with her . Smoking packs per day: 0.5 Smoking cigarettes per day: 10.0 Years smoked: 8 Smoking pack-years: 4.00 Smoking status: Former smoker Tobacco type: cigarettes Second hand tobacco smoke exposure: Yes Additional smoking assessment comments: Patient smoked about 1/2 from [age]. Alcohol intake: current Alcohol use details: Rare. Substance use: current Substance use type: marijuana Other substance usage details: THC GUMMIES Do You Feel Safe in your Home?: Yes Lack of Transportation: No Lack of Food: Never True Current Housing: I Have Housing Concerned About Future Housing: No Difficulty Paying Gas/Electric Bills: No Difficulty Paying for Meds: No Currently Unemployed: No Education: High School Diploma/GED Difficulty w/ Childcare or Family Care: No Living arrangements: with family Occupation/Education: occupation Additional occupation/education comments: [employer] Gender identity (if verbalized by the patient): Female Spiritual care concerns: No Comments At time of signature, I have reviewed and agree with nursing past medical, surgical, social and family history unless otherwise noted. Please see nursing chart for further information. There is no relevant family history pertinent to the presenting complaint. Exam Narrative: GENERAL: Well-appearing, well-nourished, and in no acute distress. EYES: EOMI. No redness or drainage. Conjunctivae normal. ENT: Mucous membranes pink and moist. Nares clear. No rhinorrhea. TMs normal bilaterally. No Throat Erythema or tonsillar exudate, uvula midline. NECK: Normal AROM. Supple. No lymphadenopathy. CHEST: No respiratory distress. Clear to auscultation. HEART: Regular rate and rhythm. No murmur appreciated. Normal peripheral pulses. ABDOMEN: Soft, nontender, nondistended, normal active bowel sounds. SKIN: Warm, dry, no rash. Capillary refill normal. Normal skin turgor. NEURO: No focal deficits. Alert and oriented x3. Gait steady. PSYCH: Normal affect. No signs of depression or anxiety. Course Course Level of Care: Express Care Visit Vital Signs Vital signs: Vital Signs Temperature 97.6 F 09/03/24 13:29 Pulse Rate 98 09/03/24 13:29 Respiratory Rate 16 09/03/24 13:29 Blood Pressure 145/80 H 09/03/24 13:29 Pulse Oximetry 100 09/03/24 13:29 Temperature 97.6 F 09/03/24 13:29 Pulse Rate 98 09/03/24 13:29 Respiratory Rate 16 09/03/24 13:29 Blood Pressure 145/80 H 09/03/24 13:29 Pulse Oximetry 100 09/03/24 13:29 Reviewed. MDM - URI/Sore Throat MDM Narrative Medical decision making narrative: Discussed physical exam findings. Advised supportive measures and signs/symptoms to go to the ER. Pt is appropriate for outpt treatment and follow up. Differential Diagnosis Differential diagnosis: Likely upper respiratory infection, croup, bronchitis and other (pneumonia. ) Lab Data Labs: ITS Impressions Chest X-Ray 09/03/24 13:52 Impression: Lingular atelectasis versus pneumonia. Correlate clinically. Critical Care Time Critical Care Time Critical Care Time: No Discharge Plan Discharge Clinical Impression: Atypical pneumonia Patient Disposition: Home Condition: Stable Instructions: Antibiotic Form, Pneumonia (ED) Additional Instructions: Pneumonia is a lung infection that can cause a fever, cough, and trouble breathing. How it spreads: When someone with bacterial pneumonia coughs, sneezes, or talks, they release respiratory droplets into the air that can be inhaled by others. You can also get pneumonia by touching a contaminated surface or object and then touching your mouth or nose. You're generally contagious for around 48 hours after starting antibiotics and your fever goes away. To prevent the spread of pneumonia, you can: ? Get vaccinated ? Wash your hands often with soap and water for 20 seconds ? Cover your mouth with a tissue when you cough or sneeze ? Avoid people who are already sick with pneumonia ? Stay home when you have pneumonia Take antibiotics as directed until complete. eat small frequent meals. Get lots of rest and drink fluids. Alternate Tylenol and ibuprofen for pain/fever [id number] cough medication can cause drowsiness, take according to package directions If you have nasal congestion, you can take Zyrtec, Claritin along with Flonase spray Call your Primary Care Doctor and make a follow-up appointment in 3 days. Go to the ER for worsening symptoms or concerns Patient Language: Citizen Of [place] Prescriptions: New albuterol sulfate [Ventolin HFA] 90 mcg/actuation HFA aerosol inhaler 2 puff inhalation QID PRN (Reason: shortness of breath or wheezing) Qty: 6.7 0RF doxycycline monohydrate 100 mg capsule 100 mg PO BID 7 Days Qty: 14 0RF prednisone 20 mg tablet 40 mg PO DAILY 5 Days Qty: 10 0RF No Action celecoxib 200 mg capsule 200 mg PO Q24H hydroxychloroquine 200 mg tablet 400 mg PO DAILY prednisone 5 mg tablet 5 mg PO Q12H alendronate 70 mg tablet 70 mg PO WEEKLY duloxetine 30 mg capsule,delayed release(DR/EC) 30 mg PO BID Qty: 60 6RF gabapentin 600 mg tablet 600 mg PO BID Rx Instructions: TAKE 1 TABLET BY MOUTH TWICE DAILY estradiol 10 mcg Insert, Dose Pack 10 mcg VAGINAL 2XW methocarbamol 750 mg tablet 750 mg PO TID PRN (Reason: muscle spasm) Qty: 90 2RF Follow-up/Referrals: Jose Alberto,Wagner Colon MD [Primary Care Provider] -
== END 2024-09-03 14:03 | disposition home or self-care (01) ==
PROVIDERS: PCP Internal Medicine
DX: J18.9 Pneumonia, unspecified organism (principal); Z87.891 Personal history of nicotine dependence; F12.90 Cannabis use, unspecified, uncomplicated; G25.81 Restless legs syndrome; M47.812 Spondylosis without myelopathy or radiculopathy, cervical region; M47.816 Spondylosis without myelopathy or radiculopathy, lumbar region; M81.0 Age-related osteoporosis without current pathological fracture; M19.90 Unspecified osteoarthritis, unspecified site; M35.9 Systemic involvement of connective tissue, unspecified
CPT/HCPCS: 71046; 99213; G0463

== ENCOUNTER 2024-09-16 13:41 | Outpatient (CLI) | payer BC, SELFPAY ==
--- NOTE | ~2024-09-16 | XR_ITS ---
XR chest 2V 09/16/2024 13:58 Indication: Pneumonia follow-up. Procedure: 2 view chest Comparison: Comparison to multiple prior studies sequentially, with oldest reviewed study dated 08/2023. Findings: No significant change to lingular opacity with irregular shaped. Heart size normal. Right l guillermo clear. No pleural effusion, edema or pneumothorax. Impression: 1: Stable lingular opacity. Correlation with CT chest recommended to exclude underlying mass. Reviewed, dictated and finalized at location A. Impression: 1: Stable lingular opacity. Correlation with CT chest recommended to exclude un derlying mass.
--- OUTSIDE RECORDS SUMMARY | 2024-09-16 13:48 | XMS_ITS | Continuity of Care Document ---
Author Organization [place] - [facility] [email or web address] [facility], [facility] Internal Med [facility] [address] [facility] [address] [place] [address] Care Team Providers Care E Business Specialist Name Role Phone XUAN ABRAMS Primary Care Provider XUAN ABRAMS Referring Provider Assessment No assessment recorded. Plan of Treatment Reminders Order Date Submit Date Provider Last Modified By Organization Details Last Modified Time Details Appointments None record ed. Lab None record ed. Referral None record ed. Procedures None record ed. Surgeries None record ed. Imaging None record ed. Medication Orders None record ed. Patient TargetsNo targets recorded. Patient Instructions Encounter Date Encounter Id Patient Instructions Last Modified By Organization Details Last Modified Time 09/15/2024 [id number] Follow-up for pneumonia clinically doing well. Will repeat a chest x-ray which is two weeks post treatment. Pending those results may need further evaluation Keep Appointment: Fri 04:10 PM [facility] Portions of record are template driven. When necessary additional context will be provided. Additionally some portions have been created with voice recognition software. Occasional wrong-word or [id number] substitutions may have occurred due to the inherent limitations of voice recognition software. Read the chart carefully and recognize, using context, where substitutions may have occurred. Created: Xuan Abrams M.D. 09.15.2024 04:22 PM Not available 09/15/2024 17:22:19 Reason for Referral None Reported. Results Created Date Observation Date Name Description Value Unit Range Abnormal Flag Note LastModifiedBy Organization Detail LastModifiedTime 09/04/19 25 09/03/2024 XR, chest No observ ation record ed. [email or web address] [facility] [address] [facility], [place], [address], 09/03/2024 15:43:30 Result Notes None recorded. Problems Name Problem SNOMED Code Status Onset Date Resolution Date Notes Provider Name and Address Organization Details Recorded Time Menopausal syndrome 637231357 Active Not Available [facility] 3 09:00:44 Acute sinusitis 46420324 Active 2021 Not Available [facility] 3 09:00:44 Closed fracture of distal end of radius 08521429 Active Not Available [facility] 3 09:00:44 Osteoarthr itis of knee 778784717 Active 2021 Not Available [facility] 3 09:00:44 Migraine 05681947 Active Not Available [facility] 3 09:00:44 Osteoarthr itis 441277326 Active 2021 Not Available [facility] 3 09:00:44 Tendinitis of wrist 283994772 Active Not Available [facility] 3 09:00:44 History of polyp of colon 639409138 Active 2020 Not Available [facility] 3 09:00:44 Pain of right knee joint 1916539687267 00 Active 2021 Not Available [facility] 3 09:00:44 Cervical radiculopa thy 60416299 Active Not Available [facility] 3 09:00:44 Allergic rhinitis 21752967 Active Not Available [facility] 3 09:00:44 Osteoporos is 99546834 Active 2016 Not Available [facility] 3 09:00:44 Fracture of forearm 09593125 Active Not Available [facility] 3 09:00:44 Dyspareuni a 05011495 Active Not Available [facility] 3 09:00:44 Pain in right foot 4158679401475 07 Active 2022 Not Available [facility] 3 09:00:44 Chronic back pain 702026635 Active 2022 Not Available [facility] 3 09:00:44 Gastroesop hageal reflux disease 124636625 Active 2022 Not Available [facility] 3 09:00:44 Fatigue 30350865 Active 2022 Not Available [facility] 3 09:00:44 Senile osteoporos is 84447697 Active 2022 Not Available [facility] 3 09:00:44 Liver enzymes level above reference range 890035425 Active 2022 Not Available [facility] 3 09:00:44 Chronic sinusitis 56058771 Active 2022 Not Available [facility] 3 09:00:44 Osteoarthr itis of right knee joint 9463718947486 00 Active 2022 ENID George, [place] [facility] 3 14:02:13 Acute bronchitis 54220893 Active 2023 Xuan Abrams MD [address], [place], [address] , [facility] 4 16:27:09 Chronic pain syndrome 880758126 Active 2023 Xuan Abrams MD [address], [place], [address] , [facility] [employer] [facility] 4 17:02:43 Non-obstru ctive atheroscle rosis of coronary artery 460098447 Active 2023 Xuan Abrams MD [address], [place], [address] , [facility] 4 15:13:44 Autoimmune disease 07662018 Active 2024 Xuan Abrams MD [address], [place], [address] , [facility] 5 17:27:49 Bilateral tinnitus 6845992963366 Active 2024 Xuan Abrams MD [address], [place], [address] , [facility] [employer] [facility] 5 17:29:38 Chronic cough 34244887 Active 2024 Brianna Summers CMA null, [facility] 14:58:01 Pneumonia 964008159 Active 2024 Xuan Abrams MD [address], [place], [address] , [facility] 5 17:22:09 Problem Notes None recorded. Procedures Surgical History Date Name Laterality Status Provider Name and Address Organization Details Recorded Time 08/22/19 SEPTOPLASTY (SURG) completed Not Available [facility] 07/03/2022 06:18:44 procedure on wrist completed Not Available [facility] 07/03/2022 06:10:16 Imaging Results None recorded. Procedure Notes None recorded. Medical Equipment None Reported. Allergies No known drug allergies Medications Name Sig Start Date Stop Date Status Note LastModified by Organization Details LastModified Time Singulair 10 mg tablet Take 1 tablet every day by oral route. 2013 active Not Available Not Available Not Avai lable celecoxib 200 mg capsule TAKE 1 CAPSULE BY MOUTH TWICE A DAY NEEDED active Not Available Not Available No t Available cyclobenzap rine 10 mg tablet TAKE 1 TABLET BY MOUTH THREE TIMES A DAY 01/30 completed Not Available Not Available Not Available amoxicillin 500 mg capsule TAKE 1 CAPSULE EVERY 8 HOURS BY ORAL ROUTE active Not Available Not Available No t Available gabapentin 600 mg tablet TAKE 1 TABLET BY MOUTH TWICE A DAY active Not Available Not Available No t Available naproxen 375 mg tablet Take 1 tablet twice a day by oral route. 09/10 completed Not Available Not Available Not Available benzonatate 200 mg capsule Take 1 capsule 3 times a day by oral route. 2024 active Not Available Not Available Not Avai lable hydrocodone 5 mg-acetamin ophen 325 mg tablet TAKE 1-2 TABLET BY MOUTH EVERY 6 HOURS 07/10 completed Not Available Not Available Not Available Keflex 500 mg capsule Take 1 capsule 4 times a day by oral route. active Not Available Not Available No t Available meloxicam 15 mg tablet TAKE 1 TABLET BY MOUTH EVERY DAY 07/10 completed Not Available Not Available Not Available bupivacaine HCl 0.5 % (5 mg/mL) injection solution Take 20 mg by injection route. 10/17 completed Not Available Not Available Not Available prednisone 20 mg tablet TAKE 2 TABLETS BY MOUTH DAILY FOR 5 DAYS 09/15 completed Not Available Not Available Not Available alendronate 70 mg tablet PLEASE SEE ATTACHED FOR DETAILED DIRECTION S active Not Available Not Available No t Available prednisone 5 mg tablet TAKE 1-3 TABLETS BY MOUTH ONCE A DAY 09/15 completed Not Available Not Available Not Available Zithromax Z-Fazal 250 mg tablet Take 2 TABLET EVERY DAY by oral route for 1 day then one daily 07/10 completed Not Available Not Available Not Available meclizine 12.5 mg tablet TAKE 1 TABLET 3 TIMES A DAY BY ORAL ROUTE. 02/16 completed Not Available Not Available Not Available tramadol 50 mg tablet Take 1 tablet every 4-6 hours by oral route. 09/10 completed Not Available Not Available Not Available alprazolam 0.5 mg tablet One or two tablets before MRI active Not Available Not Available No t Available famotidine 20 mg tablet TAKE 1 TABLET BY MOUTH DAILY 07/01 completed Not Available Not Available Not Available methocarbam ol 750 mg tablet TAKE 1 TABLET BY MOUTH THREE TIMES A DAY NEEDED FOR MUSCLE SPASM active Not Available Not Available No t Available Vibramycin 100 mg capsule Take 1 capsule twice a day by oral route. 12/20 completed Not Available Not Available Not Available Kenalog 10 mg/mL suspension for injection in office 07/01 completed [facility]: [phone] Not Available Not Available Not Available meclizine 25 mg tablet Take 1 tablet 3 times a day by oral route. active Not Available Not Available No t Available baclofen 10 mg tablet Take 1 tablet 3 times a day by oral route. 02/05 completed Not Available Not Available Not Available doxycycline monohydrate 100 mg capsule TAKE 1 CAPSULE BY MOUTH TWICE A DAY FOR 7 DAYS 09/15 completed Not Available Not Available Not Available hydrocodone 7.5 mg-acetamin ophen 325 mg tablet TAKE 1 TABLET BY MOUTH EVERY 4 HOURS NEEDED 07/27 completed Not Available Not Available Not Available pantoprazol e 40 mg tablet,eh yed release TAKE 1 TABLET (40 MG) BY ORAL ROUTE ONCE DAILY TO PROTECT STOMACH LINING 07/01 completed Not Available Not Available Not Available diclofenac potassium 50 mg tablet TAKE 1 TABLET BY MOUTH TWICE A DAY 07/27 completed Not Available Not Available Not Available Xylocaine 20 mg/mL (2 %) injection solution In office injection administe red by the provider 10/17 completed Not Available Not Available Not Available aspirin 81 mg chewable tablet TAKE 1 TABLET BY MOUTH EVERY DAY AT 8AM active Not Available Not Available No t Available diclofenac sodium 50 mg tablet,eh yed release TAKE 1 TABLET BY MOUTH TWICE A DAY 10/24 completed Not Available Not Available Not Available gabapentin 100 mg capsule TAKE 1 CAPSULE BY MOUTH THREE TIMES A DAY 12/03 completed Not Available Not Available Not Available diazepam 10 mg tablet INSERT ONE TABLET INTO VAGINA AT BEDTIME FOR 14 NIGHTS. DO NOT USE ORALLY. active Not Available Not Available No t Available hydroxychlo roquine 200 mg tablet TAKE 2 TABLETS BY MOUTH DAILY active Not Available Not Available No t Available estradiol 0.01% (0.1 mg/gram) vaginal cream Insert 1 g every day by vaginal route at bedtime for 14 days. 06/22 completed Not Available Not Available Not Available methylpredn isolone 4 mg tablets in a dose pack TAKE 6 TABLETS ON DAY 1 DIRECTED ON PACKAGE AND DECREASE BY 1 TAB EACH DAY FOR A TOTAL OF 6 DAYS 09/17 completed Not Available Not Available Not Available albuterol sulfate HFA 90 mcg/actuati on aerosol inhaler INHALE 2 PUFFS 4 TIMES A DAY NEEDED FOR SHORTNESS OF BREATH OR FOR WHEEZE active Not Available Not Available No t Available Cipro 250 mg tablet Take 1 tablet every 12 hours by oral route for 5 days. 09/10 completed Not Available Not Available Not Available fluticasone propionate 50 mcg/actuati on nasal spray,suspe nsion two sprays each nostril 07/11 completed Not Available Not Available Not Available amoxicillin 875 mg-potassiu m clavulanate 125 mg tablet TAKE 1 TABLET BY MOUTH TWICE A DAY FOR 7 DAYS 07/10 completed Not Available Not Available Not Available cyclobenzap rine 5 mg tablet Take 1 tablet 3 times a day by oral route. 02/05 completed Not Available Not Available Not Available nitrofurant oin monohydrate /macrocryst als 100 mg capsule TAKE 1 CAPSULE BY MOUTH TWICE A DAY FOR 3 DAYS 02/27 /2025 completed Not Available Not Available Not Available duloxetine 30 mg capsule,del ayed release TAKE 1 CAPSULE BY MOUTH TWICE A DAY active Not Available Not Available No t Available tizanidine 2 mg capsule TAKE 1 CAPSULE BY MOUTH THREE TIMES DAILY NEEDED FOR MUSCLE SPASTICIT Y 01/30 completed Not Available Not Available Not Available Boniva 150 mg tablet Take 1 tablet every month by oral route. 06/13 completed Not Available Not Available Not Available tizanidine 01/30 completed Not Available Not Available Not Available Os-Saurabh 500 + D3 ONE TWICE A DAY 07/11 completed Not Available Not Available Not Available Loestrin 24 Fe 1 mg-20 mcg (24)/75 mg (4) tablet active Not Available Not Available Not Available lidocaine (PF) 10 mg/mL (1 %) injection solution In office injection administe red by the provider 05/11 completed [facility]: [phone]- [phone] Not Available Not Available Not Available lidocaine (PF) 5 mg/mL (0.5 %) injection solution In office injection administe red by the provider 09/17 completed Not Available Not Available Not Available ropivacaine (PF) 5 mg/mL (0.5 %) injection solution in office 09/15 completed [facility] [phone] -[phone] Not Available Not Available Not Available Os-Saurabh 500 + D3 500 mg-15 mcg (600 unit) tablet Take 1 tablet twice a day by oral route. active Not Available Not Available No t Available Minastrin 24 Fe 1 mg-20 mcg (24)/75 mg (4) chewable tablet Chew 1 tablet every day by oral route. active Not Available Not Available No t Available Os-Saurabh + D3 06/22 completed Not Available Not Available Not Available Mimvey Lo 0.5 mg-0.1 mg tablet Take 1 tablet every day by oral route. 02/05 completed Not Available Not Available Not Available Yuvafem 10 mcg vaginal tablet INSERT 1 INSERT VAGINALLY 2 TIMES WEEKLY active Not Available Not Available No t Available ID NOW COVID-19 Test Kit TEST DIRECTED TODAY 09/17 completed Not Available Not Available Not Available Vitals Date Recorded Body height Body mass index (BMI) Body weight Heart rate Body temperature Oxygen saturation Oxygen saturation in Arterial blood by Pulse oximetry Systolic blood pressure Diastolic blood pressure Provider Name and Address Organization Details Last Updated DateTime 5 170.18 cm 25.1 kg/m2 96465.7 8 g 87 /min 98.7 [degF] 95 % 95 % 118 mm[Hg] 80 mm[Hg] [place] [facility] [employer] [facility] 5 17:14:14 Social History Question Answer Notes LastModified by voxapp Details LastModified Time Tobacco Smoking Status Never Smoker Not Available [facility] 07/03/2022 06:09:48 In The 14 Days Before Symptom Onset, Have You Had Close Contact With A Laboratory-confirm ed COVID-19 While That Case Was Ill? No [id number] Information not available 07/03/2022 In The 14 Days Before Symptom Onset, Have You Had Close Contact With A Person Who Is Under Investigation For COVID-19 While That Person Was Ill? No [id number] Information not available 07/03/2022 Have You Recently Traveled Abroad? No [id number] Information not available 07/03/2022 Sex: Unknown Functional Status Question Answer Note LastModified by voxapp Details LastModified Time What is your level of alcohol consumption? None [id number] Information not available 07/03/2022 Mental Status None recorded. Family History Relationship Description Onset Age of this Age Resolved Age Notes LastModified by Organization Details LastModified Time Father Heart disease [id number] Not available 07/03/2022 06:10:17 Father Hypertensive disorder [id number] Not available 07/03/2022 06:10:17 Mother Heart disease [id number] Not available 07/03/2022 06:10:17 Mother Hypertensive disorder [id number] Not available 07/03/2022 06:10:17 Mother Diabetes mellitus [id number] Not available 07/03/2022 06:10:17 Sister Diabetes mellitus [id number] Not available 07/03/2022 06:10:17 Father Sinusitis [email or web address] Not availabl e 10/24/2022 16:03:19 Medical History Condition Response SLEEP APNEA N MRSA N ALLERGIES/HAYFEVER N OTHER # 1 N LUNG DISEASE/DISORDER N INSOMNIA N RADIATION / CHEMOTHERAPY N COPD N HIGH CHOLESTEROL / HYPERLIPIDEMIA N Other # 2 N HYPERTHYROIDISM N BLOOD DISEASES N NEUROLOGICAL PROBLEMS N SURGERY N EAR OR HEARING PROBLEMS N HYPOTHYROIDISM N DEPRESSION (INCLUDING POST ) N HAVE YOU BEEN HOSPITALIZED OR SEEN IN [facility] ER IN THE PAST YEAR ? N STROKE/TIA N ULCERS N OBESITY N ANEURYSM N HISTORY WITH COMPLICATIONS WITH ANESTHES IA ? N OSTEOPOROSIS Y ARTHRITIS Y USE OF BLOOD THINNERS N NO SIGNIFICANT PAST MEDICAL HISTORY N DIABETES, TYPE N PARATHYROID DISEASE N ENT N SEASONAL ALLERGIES N HEARTBURN / REFLUX N HEPATITIS / LIVER DISEASE N SLEEP DISORDER N HEADACHES/MIGRAINES N SEIZURES/EPILEPSY N CHF N PACEMAKER N DIZZINESS N HEART DISEASE/HEART PROBLEMS N AIDS/HIV N FRACTURES N HYPERTENSION N CANCER: SPECIFY N TOURETTE'S N BLOOD TRANSFUSION N ANESTHESIA COMPLICATIONS N ANEMIA/BLOOD DISORDER N CHRONIC EAR INFECTIONS N TUBERCULOSIS N Gynecological HistoryNo gynecological history recorded. Obstetrics History GPAL:G 0 P 0 0 0 0 Immunizations Vaccine Type Date Status Note Provider Nam e and Address Organization Details Recorded Time Influenza, split virus, quadrivalent, preservative 0 completed Not Available [facility] 11/13/2022 09:00:45 COVID-19, mRNA, LNP-S, PF, 30 mcg/0.3 mL dose 1 completed Not Available [facility] 11/13/2022 09:00:45 Influenza, split virus, quadrivalent, preservative 1 completed Not Available [facility] 11/13/2022 09:00:45 SARS-COV-2 (COVID-19) vaccine, UNSPECIFIED 1 completed Not Available [facility] 11/13/2022 09:00:45 SARS-COV-2 (COVID-19) vaccine, UNSPECIFIED 1 completed Not Available [facility] 11/13/2022 09:00:45 Influenza, split virus, quadrivalent, preservative 8 completed Not Available [facility] 11/13/2022 09:00:45 Influenza, split virus, quadrivalent, PF 2 completed Not Available [facility] 11/13/2022 09:00:45 Influenza, split virus, trivalent, PF 4 completed Xuan Abrams MD [address] [place] [address], [address] [place] [address], [place], [address], [place] [facility] 02/17/2024 15:19:04 Past Encounters Encounter ID Performer Location Encounter Start Date Encounter Closed Date Diagnosis/Indication Diagnosis SNOMED-CT Code Diagnosis ICD10 Code Diagnosis Note [id number] Xuan Abrams MD [facility] Internal Med [address] [place] [address] 09/15/2024 17:13:13 09/15/2024 17:22:38 Pneumonia 149461910 J18.9 Health Concerns Section Related Observation LastModified by Organization Detai ls LastModified Time None Recorded Concern Status LastModified by Organization Details LastModified Time None Recorded Payers Encounter Date Sequence Insurance Name Policy Number Policy Nelson Covered Member ID Nelson Member ID Guarantor Name 09/15/2024 1 [place] [employer] [place] [place] [id number] [place] Perla [id number] Zhanna Perla Notes Date Note Type Note Provider Name and Address Organization Details Recorded Time text/html Patient Name: Zhanna PanDate Of Service: Friday ( 09.15.2024 ): 1960 Age: 64 Vital Signs:Blood Pressure: Sitting Rt. Arm 118/80Pulse: Sitting 87 /min and RegularRespiratory Rate: 12Height 67 in or 1.7 mWeight 160 lb or 72.6 kgBMI 25.1Temperature: 98.7 F or 37.1 C Chief Complaint: Follow-up for pneumonia Problems or conditions discussed in the HPI were the only ones reviewed during the encounter.Only social and family history addressed in the HPI were reviewed during this encounter. Attendant(s): NoneConstitutional and Systemic Symptoms:none Medication Reconciliation: from medication list. Hshgwgsgmiz90/06/2023: DEXA scan demonstrates a T-score of the lumbar spine consistent with osteopenia but some osteoporosis at levels L3 and L4. Bilateral hip T-scores consistent with osteoporosis. 10/14/2022: Ultrasound the abdomen revealed a normal liver silhouette. No evidence any fatty infiltration. 02-06-2024: Cardiac catheterization left main widely patent without any significant obstructive disease. Left anterior descending some mild luminal irregularities without any significant obstructive disease. Left circumflex no significant obstructive and disease right coronary artery mild luminal irregularities without any significant obstructive disease.02-06-2024: Echocardiogram estimated ejection fraction 65-70% with normal LV function.02-06-2024: CT scan of abdomen and pelvis 5 mm right lower lobe pulmonary nodule small pericardial effusion noted. Chronic L1 compression deformity. 08-25-2024: Audiogram shows bilateral high-frequency hearing losses. Is a candidate for possible amplification with hearing aids. History of Present Illness #1. Follow-up for recent bout of community-acquired pneumonia. Did receive apparently some form of Z-Fazal and did do better with this. Still has some residual cough and congestion but no purulent material. Was given some Tessalon Perles. I have suggested she should take some Robitussin DM as well with expect her in it so that it may help thin the secretions somewhat. Physical examination lungs appear to be basically clear: Active Medication ListMethocarbamol 750 MG (TABLET - ORAL) One TidOs-saurabh D One BidFosamax 70 MG (TABLET - ORAL) One Tablet WeeklyNeurontin 600 MG (TABLET - ORAL) BidHydroxychloroquine Sulfate 200 MG TABLET One DailyDuloxetin Hydrochloride 30 MG CAPSULE, DELAYED RELEASE One BidCelebrex 200 MG CAPSULE One Twice A DayPrednisone 5 MG TABLET 1-3 Tablets Daily Xaun Abrams MD [address] [facility] [facility] [address], [place], [address], [facility] 09/15/2024 17:22:37 OBGyn Episode No OBEpisode recorded.
--- OUTSIDE RECORDS SUMMARY | 2024-09-16 13:49 | XMS_ITS | Data Portability ---
Author Organization [place] - S [employer], Main Office Address [address] [place] [address] Care Team Providers Care Marketing Production Coordinator Name Role Phone XUAN ABRAMS Primary Care Provider XUAN ABRAMS Referring Provider Assessment Encounter Date Assessment Date Assessment LastModified by Organization Details LastModified Time 07/11/2023 07/11/2023 HPI: Patient returns. She is here for cortisone injection in the right knee. Last shot was 3 months ago. She has severe patellofemoral osteoarthritis. Injections Continue to give her good relief and she wishes to continue with these. Physical exam: 63-year-old female alert pleasant. She walks well. She is wearing a postop shoe on the right foot from foot surgery. She has a mild effusion in the right knee. Moderate pain with patellofemoral grind. Range of motion is from 0-135 degrees. No tenderness over the mediolateral joint lines. After Betadine and alcohol prep 20 mg Kenalog and 3 cc of 0.5% ropivacaine was injected into the right knee. Impression: 63-year-old female has severe patellofemoral osteoarthritis the right knee. Cortisone injections continue to give her good relief. We will see her in 3 months. [email or web address] Not available 07/11/2023 09:21:22 Plan of Treatment Reminders Order Date Submit Date Provider Last Modified By Organization Details Last Modified Time Details Appointments None recorded. Lab vitamin D, 25-hydroxy, total, serum 2024 025 [facility], [address], [place], [address], 03/06/202 5 17:24:00 CMP, serum or plasma 2024 025 VERONICA [facility], [address], [place], [address], 5 17:34:48 TSH, serum or plasma 2024 025 [email or web address] [facility], [address], [place], [address], 5 17:24:00 T4, free, serum 2024 025 [email or web address] [facility], [address] [place], [address], 5 17:24:01 CBC w/ auto diff 2024 025 [id number] [facility], [address] [place], [address], 5 17:24:01 vitamin B12, serum 2024 025 [email or web address] [facility], [address] [place], [address], 5 17:24:01 CMP, serum or plasma 2024 025 [email or web address] [facility], [address], [place], [address], 5 17:24:01 lipid panel, serum 2023 024 VERONICA [facility], [place], [address], 4 02:43:54 CMP, serum or plasma 2023 024 VERONICA [facility], [address] [place], [address], 4 02:43:54 vitamin D, 1,25-dihydr oxy, serum 2023 024 [email or web address] [facility] (Lab), [address] [place], [address], 4 14:19:29 vitamin B12, serum 2023 024 [email or web address] [facility] (Lab), [address] [place], [address], 4 14:19:29 TSH, serum or plasma 2023 024 [email or web address] [facility], [address], [place], [address], 4 14:19:29 T4, free, serum 2023 024 [email or web address] [facility], [address], [place], [address], 4 14:19:30 CBC w/ auto diff 2023 024 [email or web address] [facility], [address], [place], [address], 4 14:19:30 Referral None recorded. Procedures injection/a spiration joint/bursa (PROC) - in office procedure, administere d by provider 2023 024 [email or web address] In-Office Order, Internal Use Only DO Not Attach Compendium DO Not Attach Compendium, Do Not Delete/merge, [id number] 4 09:11:57 Surgeries None recorded. Imaging None recorded. Medication Orders Kenalog 10 mg/mL suspension for injection 2023 024 [email or web address] [id number], [address] , [place], [address], 17:15:45 ropivacaine (PF) 5 mg/mL (0.5 %) injection solution 2023 024 [email or web address] [id number], [address] , [place], [address], 17:14:44 Patient TargetsNo targets recorded. Patient Instructions Encounter Date Encounter Id Patient Instructions Last Modified By Organization Details Last Modified Time 12/04/2023 [id number] INFLUENZA VACCIN E TD/TDAP PNEUMONIA VACCINE SHINGLES MAMMOGRAM: Last Mammogram DEXA SCAN CERVICAL SCREENING/PELVIC EXAMINATION COLORECTAL SCREENING: Last Colonoscopy DEPRESSION SCREENING BMI NUTRITION PHYSICAL ACTIVITY VISION ALCOHOL USE TOBACCO USE LUNG CANCER SCREENING SEXUALLY ACTIVE HEPATITIS C SCREENING GLUCOSE SCREENING LIPID SCREENING [email or web address] Not available 12/04/2023 16:51:05 Follow-up GERD, chronic pain syndrome, osteoporosis all clinically stable. Will continue on current Rx does need some baseline blood work consisting of CBC, CMP, lipid, thyroid and vitamin-D level. Continue on current Rx. Will set up with a silk examiner since her previous silk examiner is moving. Continue on current Rx follow-up in six months Next Appointment: 6 Months Approximate Date: 06/01/2024 Portions of the record may have been created with voice recognition software. Occasional wrong-word or s ound-a-like substitutions may have occurred due to the inherent limitations of voice recognition software. Read the chart carefully and recognize, using context, where substitutions have occurred. [email or web address] Not available 12/04/2023 17:08:49 02/17/2024 [id number] risk assessment* [email or web address] Not availabl e 02/17/2024 15:19:04 INFLUENZA VACCIN E TD/TDAP Recommended today, patient declined Ordered Pa radhant will get at local pharmacy/health department PNEUMONIA VACCINE Ordered Recommended today, patient declined Patient will get at local pharmacy/health department Recommen ded at age 64 SHINGLES Ordered Recommended today, patient declined Patient will get at local pharmacy/health department MAMMOGRAM: Last Mammogram Recommended today, but patient declined DEXA SCAN No screening necessary patient is up to date CERVICAL SCREENING/PELVIC EXAMINATION Recommended today, but patient declined Ordered No screening necessary patient is up to date COLORECTAL SCREENING: Last Colonoscopy No screening necessary patient is up to date DEPRESSION SCREENING Negative BMI Overweight Appropri ate NUTRITION PHYSICAL ACTIVITY Need more exercise/physical activity VISION Ordered Recommended today ALCOHOL USE No alcohol use Occasional/Soci al Use TOBACCO USE non smoker LUNG CANCER SCREENING Non Smoker-not indicated SEXUALLY ACTIVE HEPATITIS C SCREENING Not indicated GLUCOSE SCREENING LIPID SCREENING [email or web address] Not available 02/17/2024 15:08:23 Adult health examination risk assessment stable. Follow-up for nonobstructive coronary artery disease as well as osteoporosis. Is clinically stable otherwise. Had blood work performed in the hospital. Will set up with Cardiology for further evaluation and management. Is not likely she will be placed on any additional medications at this juncture. Would continue on the aspirin until being seen by Cardiology. Follow-up in four months Additional Orders - Directives - Recommendations 1. needs a Cardiology consult up in [facility]. Please look at her cardiac catheterization report and try to set her up with the medicaid business analyst that performed the catheterization. Follow Up: 4 Months Approximate Date: 06/16/2024 Portions of the record may have been created with voice recognition software. Occasional wrong-word or s ound-a-like substitutions may have occurred due to the inherent limitations of voice recognition software. Read the chart carefully and recognize, using context, where substitutions have occurred. [email or web address] Not available 02/17/2024 15:18:51 07/01/2024 [id number] Nonobstructive coronary artery disease, autoimmune disease, osteoporosis and bilateral tenderness. Check blood work consisting of CBC, CMP, lipid, thyroid, vitamin-D level. Will set up for an audiogram for evaluation of the tinnitus and hearing loss. Additional Orders - Directives - Recommendations 1. Audiogram for tinnitus as well as hearing deficit Follow Up: 6 Months Approximate Date: 12/28/2024 Portions of record are template driven. When necessary additional context will be provided. Additionally some portions have been created with voice recognition software. Occasional wrong-word or s ound-a-like substitutions may have occurred due to the inherent limitations of voice recognition software. Read the chart carefully and recognize, using context, where substitutions may have occurred. Created: Xuan Abrams M.D. 07.01.2024 04:33 PM [email or web address] Not available 07/01/2024 17:33:47 09/15/2024 [id number] Follow-up for pneumonia clinically doing well. Will repeat a chest x-ray which is two weeks post treatment. Pending those results may need further evaluation Keep Appointment: [facility] 12 30 2024 04:10 PM [place] Portions of record are template driven. When necessary additional context will be provided. Additionally some portions have been created with voice recognition software. Occasional wrong-word or s ound-a-like substitutions may have occurred due to the inherent limitations of voice recognition software. Read the chart carefully and recognize, using context, where substitutions may have occurred. Created: Xuan Abrams M.D. 09.15.2024 04:22 PM [email or web address] Not available 09/15/2024 17:22:19 Reason for Referral None Reported. Results Created Date Observation Date Name Description Value Unit Range Abnormal Flag Note LastModifiedBy Organization Detail LastModifiedTime 01/21/2001/22/2024 LIPID PANEL , STAND KAY cholesterol, total 174 mg/dL <200 normal Not Available [address], [address], 01/22/2024 02:43:54 01/21/20 24 01/22/2024 LIPID PANEL , STAND KAY HDL cholesterol 60 mg/dL > or = 50 normal Not Available [address], [address], 01/22/2024 02:43:54 01/21/20 24 01/22/2024 LIPID PANEL , STAND KAY triglyceride s 70 mg/dL <150 normal Not Available [address], [address], 01/22/2024 02:43:54 01/21/2001/22/2024 LIPID PANEL , STAND KAY LDL-choleste rol 98 mg/dL _(saurabh c) normal Refer ence range : <100 Yoav able range <100 mg/dL for prima ry preve ntion ; <70 mg/dL for patie nts with CHD or diabe tic patie nts with > or = 2 CHD risk facto rs. LDL-C is now calcu lated using the Miladis n-Hop kins heron higginbotham n, which is a valid ated novel harjeeto james dolan than the Fried latricia equat ion in the estim ation of LDL-C . Miladis billingsley SS et al. SIDDHARTHA. 2013; 310(1 9): 2061- 2068 (http ://ed ucati on.Qu estAledade. com/f aq/FA Q164) Not Available [address] [address] [place], [address], 01/22/2024 02:43:54 01/21/2001/22/2024 LIPID PANEL , STAND KAY chol/HDLC ratio 2.9 (calc ) <5.0 normal Not Available [address], [address], 01/22/2024 02:43:54 01/21/2001/22/2024 LIPID PANEL , STAND KAY non HDL cholesterol 114 mg/dL _(saurabh c) <130 normal For patie nts with diabe juanita plus 1 major ASCVD risk facto r, treat ing to a non-H DL-C goal of <100 mg/dL (LDL- C of <70 mg/dL ) is consi avery alex optio n. Not Available [address] [address] [place], [address], 01/22/2024 02:43:54 01/21/20 24 01/22/2024 COMPR EHENS BRITTON METAB OLIC PANEL , PLASM A glucose 89 mg/dL 65-99 normal Fasti ng refer ence inter nora Not Available [facility] [address] [address] [place], [address], 01/22/2024 02:43:54 01/21/2001/22/2024 COMPR EHENS BRITTON METAB OLIC PANEL , PLASM A urea nitrogen (BUN) 10 mg/dL 7-25 normal Not Available [facility] [address] [address] [place], [address], 01/22/2024 02:43:54 01/21/20 24 01/22/2024 COMPR EHENS BRITTON METAB OLIC PANEL , PLASM A creatinine 0.85 mg/dL 0.50-1 .05 normal Not Available [address], [address], 01/22/2024 02:43:54 01/21/20 24 01/22/2024 COMPR EHENS BRITTON METAB OLIC PANEL , PLASM A eGFR 76 mL/mi n/1.7 3m2 > or = 60 normal Not Available [address], [address], 01/22/2024 02:43:54 01/21/20 24 01/22/2024 COMPR EHENS BRITTON METAB OLIC PANEL , PLASM A BUN/creatini ne ratio SEE NOTE: (calc ) 6-22 Not Repor boris: BUN and Creat inine are withi n refer ence range . Not Available [address], [address], 01/22/2024 02:43:54 01/21/20 24 01/22/2024 COMPR EHENS BRITTON METAB OLIC PANEL , PLASM A sodium 136 mmol/ L 135-14 6 normal Not Available [address], [address], 01/22/2024 02:43:54 01/21/20 24 01/22/2024 COMPR EHENS BRITTON METAB OLIC PANEL , PLASM A potassium 4.2 mmol/ L 3.4-4. 8 normal Not Available [facility] [address], [address], 01/22/2024 02:43:54 01/21/20 24 01/22/2024 COMPR EHENS BRITTON METAB OLIC PANEL , PLASM A chloride 104 mmol/ L 98-110 normal Not Available [facility] [address], [address], 01/22/2024 02:43:54 01/21/20 24 01/22/2024 COMPR EHENS BRITTON METAB OLIC PANEL , PLASM A carbon dioxide 28 mmol/ L 20-32 normal Not Available [address], [address], 01/22/2024 02:43:54 01/21/20 24 01/22/2024 COMPR EHENS BRITTON METAB OLIC PANEL , PLASM A calcium 8.7 mg/dL 8.6-10 .4 normal Not Available [address], [address], 01/22/2024 02:43:54 01/21/20 24 01/22/2024 COMPR EHENS BRITTON METAB OLIC PANEL , PLASM A protein, total 6.9 g/dL 6.4-8. 4 normal Not Available [address], [address], 01/22/2024 02:43:54 01/21/20 24 01/22/2024 COMPR EHENS BRITTON METAB OLIC PANEL , PLASM A albumin 4.1 g/dL 3.6-5. 1 normal Not Available [address], [address], 01/22/2024 02:43:54 01/21/20 24 01/22/2024 COMPR EHENS BRITTON METAB OLIC PANEL , PLASM A globulin 2.8 g/dL_ (calc ) 2.2-4. 0 normal Not Available [address], [address], 01/22/2024 02:43:54 01/21/20 24 01/22/2024 COMPR EHENS BRITTON METAB OLIC PANEL , PLASM A albumin/glob ulin ratio 1.5 (calc ) 0.9-2. 3 normal Not Available [facility] [address], [address], 01/22/2024 02:43:54 01/21/20 24 01/22/2024 COMPR EHENS BRITTON METAB OLIC PANEL , PLASM A bilirubin, total 0.3 mg/dL 0.2-1. 2 normal Not Available [address], [address], 01/22/2024 02:43:54 01/21/2001/22/2024 COMPR EHENS BRITTON METAB OLIC PANEL , PLASM A alkaline phosphatase 74 U/L 37-153 normal Not Available [address], [address], 01/22/2024 02:43:54 01/21/2001/22/2024 COMPR EHENS BRITTON METAB OLIC PANEL , PLASM A AST 22 U/L 10-35 normal Not Available [address], [address], 01/22/2024 02:43:54 01/21/2001/22/2024 COMPR EHENS BRITTON METAB OLIC PANEL , PLASM A ALT 26 U/L 6-29 normal Not Available [address], [address], 01/22/2024 02:43:54 01/21/2001/22/2024 CBC (INCL UDES DIFF/ PLT) white blood cell count 4.2 thous and/u L 3.8-10 .8 normal Not Available [address], [address], 01/22/2024 02:43:55 01/21/2001/22/2024 CBC (INCL UDES DIFF/ PLT) red blood cell count 4.42 akbar on/uL 3.80-5 .10 normal Not Available [address], [address], 01/22/2024 02:43:55 01/21/20 24 01/22/2024 CBC (INCL UDES DIFF/ PLT) hemoglobin 13.5 g/dL 11.7-1 5.5 normal Not Available [address], [address], 01/22/2024 02:43:55 01/21/20 24 01/22/2024 CBC (INCL UDES DIFF/ PLT) hematocrit 41.7 % 35.0-4 5.0 normal Not Available [address], [address], 01/22/2024 02:43:55 01/21/20 24 01/22/2024 CBC (INCL UDES DIFF/ PLT) MCV 94.3 fL 80.0-1 00.0 normal Not Available [address], [address], 01/22/2024 02:43:55 01/21/20 24 01/22/2024 CBC (INCL UDES DIFF/ PLT) MCH 30.5 pg 27.0-3 3.0 normal Not Available [address], [address], 01/22/2024 02:43:55 01/21/20 24 01/22/2024 CBC (INCL UDES DIFF/ PLT) MCHC 32.4 g/dL 32.0-3 6.0 normal Not Available [address], [address], 01/22/2024 02:43:55 01/21/20 24 01/22/2024 CBC (INCL UDES DIFF/ PLT) RDW 11.9 % 11.0-1 5.0 normal Not Available [address], [address], 01/22/2024 02:43:55 01/21/20 24 01/22/2024 CBC (INCL UDES DIFF/ PLT) platelet count 271 thous and/u L 140-40 0 normal Not Available [address] [place], [address], 01/22/2024 02:43:55 01/21/20 24 01/22/2024 CBC (INCL UDES DIFF/ PLT) MPV 9.0 fL 7.5-12 .5 normal Not Available [address], [address], 01/22/2024 02:43:55 01/21/20 24 01/22/2024 CBC (INCL UDES DIFF/ PLT) absolute neutrophils 2066 cells /uL 1500-7 800 normal Not Available [address], [address], 01/22/2024 02:43:55 01/21/20 24 01/22/2024 CBC (INCL UDES DIFF/ PLT) absolute lymphocytes 1369 cells /uL 850-39 00 normal Not Available [address], [address], 01/22/2024 02:43:55 01/21/20 24 01/22/2024 CBC (INCL UDES DIFF/ PLT) absolute monocytes 542 cells /uL 200-95 0 normal Not Available [address], [address], 01/22/2024 02:43:55 01/21/20 24 01/22/2024 CBC (INCL UDES DIFF/ PLT) absolute eosinophils 181 cells /uL 15-500 normal Not Available [address], [address], 01/22/2024 02:43:55 01/21/20 24 01/22/2024 CBC (INCL UDES DIFF/ PLT) absolute basophils 42 cells /uL 0-200 normal Not Available [address], [address], 01/22/2024 02:43:55 01/21/20 24 01/22/2024 CBC (INCL UDES DIFF/ PLT) neutrophils 49.2 % normal Not Available [address], [address], 01/22/2024 02:43:55 01/21/20 24 01/22/2024 CBC (INCL UDES DIFF/ PLT) lymphocytes 32.6 % normal Not Available [address], [address], 01/22/2024 02:43:55 01/21/20 24 01/22/2024 CBC (INCL UDES DIFF/ PLT) monocytes 12.9 % normal Not Available [address], [address], 01/22/2024 02:43:55 01/21/20 24 01/22/2024 CBC (INCL UDES DIFF/ PLT) eosinophils 4.3 % normal Not Available [address], [address], 01/22/2024 02:43:55 01/21/20 24 01/22/2024 CBC (INCL UDES DIFF/ PLT) basophils 1.0 % normal Not Available [address], [address], 01/22/2024 02:43:55 01/21/20 24 01/22/2024 VITAM IN B12 vitamin B12 685 pg/mL 200-11 00 normal Not Available [address], [address], 01/22/2024 02:43:55 01/21/20 24 01/22/2024 T4, FREE T4, free 1.2 NG/dL 0.8-1. 8 normal Not Available [address], [address], 01/22/2024 02:43:56 01/21/20 24 01/22/2024 TSH TSH 2.41 mIU/L 0.40-4 .50 normal Not Available [address] [address] [place], [address], 01/22/2024 02:43:56 01/21/20 24 01/22/2024 VITAM IN D,25- OH,TO ABRAHAM,I A vitamin D,25-oh,tota l,ia 49 NG/mL 30-100 normal Vitam in D Statu s 25-OH Vitam in D: Defic iency : <20 ng/mL Insuf ficie ncy: 20 - 29 ng/mL Optim al: > or = 30 ng/mL For 25-OH Vitam in D testi ng on patie nts on D2-grant pplem entat ion and patie nts for whom quant itati on of D2 and D3 fract ions is requi red, the [facility](TM ) 25-OH VIT D, (D2,D 3), LC/MS /MS is recom rosa d: order code 28286 (mario ents >2yrs ). See Note 1 Note 1 For addit ional infor makayla hall refer to http: //capri Castellanos stDia gnost ics.c om/fa q/FAQ 199 (This link is being provi ded for infor andreia chacon/ julieta barreto purpo ses only. ) Not Available [address] [address] [place], [address], 01/22/2024 02:43:56 08/25/1908/25/2024 COMPR EHENS BRITTON METAB OLIC PANEL glucose 80 mg/dL 65-99 normal Fasti ng refer ence inter nora Not Available [facility] [address] [address] [place], [address], 08/25/2024 02:51:32 08/25/1908/25/2024 COMPR EHENS BRITTON METAB OLIC PANEL urea nitrogen (BUN) 10 mg/dL 7-25 normal Not Available [facility] [address] [address] [place], [address], 08/25/2024 02:51:32 08/25/1908/25/2024 COMPR EHENS BRITTON METAB OLIC PANEL creatinine 0.92 mg/dL 0.50-1 .05 normal Not Available [address], [address], 08/25/2024 02:51:32 08/25/19 25 08/25/2024 COMPR EHENS BRITTON METAB OLIC PANEL eGFR 69 mL/mi n/1.7 3m2 > or = 60 normal Not Available [address], [address], 08/25/2024 02:51:32 08/25/19 25 08/25/2024 COMPR EHENS BRITTON METAB OLIC PANEL BUN/creatini ne ratio SEE NOTE: (calc ) 6-22 Not Repor boris: BUN and Creat inine are withi n refer ence range . Not Available [address], [address], 08/25/2024 02:51:32 08/25/19 25 08/25/2024 COMPR EHENS BRITTON METAB OLIC PANEL sodium 136 mmol/ L 135-14 6 normal Not Available [address], [address], 08/25/2024 02:51:32 08/25/19 25 08/25/2024 COMPR EHENS BRITTON METAB OLIC PANEL potassium 4.1 mmol/ L 3.5-5. 3 normal Not Available [address], [address], 08/25/2024 02:51:32 08/25/19 25 08/25/2024 COMPR EHENS BRITTON METAB OLIC PANEL chloride 100 mmol/ L 98-110 normal Not Available [address], [address], 08/25/2024 02:51:32 08/25/19 25 08/25/2024 COMPR EHENS BRITTON METAB OLIC PANEL carbon dioxide 29 mmol/ L 20-32 normal Not Available [address], [address], 08/25/2024 02:51:32 08/25/19 25 08/25/2024 COMPR EHENS BRITTON METAB OLIC PANEL calcium 8.8 mg/dL 8.6-10 .4 normal Not Available [address], [address], 08/25/2024 02:51:32 08/25/19 25 08/25/2024 COMPR EHENS BRITTON METAB OLIC PANEL protein, total 6.8 g/dL 6.1-8. 1 normal Not Available [address], [address], 08/25/2024 02:51:32 08/25/19 25 08/25/2024 COMPR EHENS BRITTON METAB OLIC PANEL albumin 3.8 g/dL 3.6-5. 1 normal Not Available [address], [address], 08/25/2024 02:51:32 08/25/19 25 08/25/2024 COMPR EHENS BRITTON METAB OLIC PANEL globulin 3.0 g/dL_ (calc ) 1.9-3. 7 normal Not Available [address], [address], 08/25/2024 02:51:32 08/25/19 25 08/25/2024 COMPR EHENS BRITTON METAB OLIC PANEL albumin/glob ulin ratio 1.3 (calc ) 1.0-2. 5 normal Not Available [address], [address], 08/25/2024 02:51:32 08/25/19 25 08/25/2024 COMPR EHENS BRITTON METAB OLIC PANEL bilirubin, total 0.3 mg/dL 0.2-1. 2 normal Not Available [address] [place], [address], 08/25/2024 02:51:32 08/25/19 25 08/25/2024 COMPR EHENS BRITTON METAB OLIC PANEL alkaline phosphatase 68 U/L 37-153 normal Not Available [address], [address], 08/25/2024 02:51:32 08/25/19 25 08/25/2024 COMPR EHENS BRITTON METAB OLIC PANEL AST 16 U/L 10-35 normal Not Available [address], [address], 08/25/2024 02:51:32 08/25/19 25 08/25/2024 COMPR EHENS BRITTON METAB OLIC PANEL ALT 18 U/L 6-29 normal Not Available [address], [address], 08/25/2024 02:51:32 08/25/19 25 08/25/2024 CBC (INCL UDES DIFF/ PLT) white blood cell count 6.9 thous and/u L 3.8-10 .8 normal Not Available [address], [address], 08/25/2024 02:51:33 08/25/19 25 08/25/2024 CBC (INCL UDES DIFF/ PLT) red blood cell count 4.30 akbar on/uL 3.80-5 .10 normal Not Available [address], [address], 08/25/2024 02:51:33 08/25/19 25 08/25/2024 CBC (INCL UDES DIFF/ PLT) hemoglobin 12.6 g/dL 11.7-1 5.5 normal Not Available [address], [address], 08/25/2024 02:51:33 08/25/19 25 08/25/2024 CBC (INCL UDES DIFF/ PLT) hematocrit 38.5 % 35.0-4 5.0 normal Not Available [address], [address], 08/25/2024 02:51:33 08/25/19 25 08/25/2024 CBC (INCL UDES DIFF/ PLT) MCV 89.5 fL 80.0-1 00.0 normal Not Available [address], [address], 08/25/2024 02:51:33 08/25/19 25 08/25/2024 CBC (INCL UDES DIFF/ PLT) MCH 29.3 pg 27.0-3 3.0 normal Not Available [address], [address], 08/25/2024 02:51:33 08/25/19 25 08/25/2024 CBC (INCL UDES DIFF/ PLT) MCHC 32.7 g/dL 32.0-3 6.0 normal For adult s, a sligh t decre ase in the calcu lated MCHC value (in the range of 30 to 32 g/dL) is most likel y not clini smooth signi kin t; [facility] [facility], it shoul d be inter prete d with cauti on in [facility] n with other red cell erika eters and the patie nt's clini saurabh condi tion. Not Available [address], [address], 08/25/2024 02:51:33 08/25/19 25 08/25/2024 CBC (INCL UDES DIFF/ PLT) RDW 12.6 % 11.0-1 5.0 normal Not Available [address], [address], 08/25/2024 02:51:33 08/25/19 25 08/25/2024 CBC (INCL UDES DIFF/ PLT) platelet count 385 thous and/u L 140-40 0 normal Not Available [address] [place], [address], 08/25/2024 02:51:33 08/25/19 25 08/25/2024 CBC (INCL UDES DIFF/ PLT) MPV 8.8 fL 7.5-12 .5 normal Not Available [address], [address], 08/25/2024 02:51:33 08/25/19 25 08/25/2024 CBC (INCL UDES DIFF/ PLT) absolute neutrophils 3167 cells /uL 1500-7 800 normal Not Available [address], [address], 08/25/2024 02:51:33 08/25/19 25 08/25/2024 CBC (INCL UDES DIFF/ PLT) absolute lymphocytes 2746 cells /uL 850-39 00 normal Not Available [address], [address], 08/25/2024 02:51:33 08/25/19 25 08/25/2024 CBC (INCL UDES DIFF/ PLT) absolute monocytes 800 cells /uL 200-95 0 normal Not Available [address], [address], 08/25/2024 02:51:33 08/25/19 25 08/25/2024 CBC (INCL UDES DIFF/ PLT) absolute eosinophils 138 cells /uL 15-500 normal Not Available [address], [address], 08/25/2024 02:51:33 08/25/19 25 08/25/2024 CBC (INCL UDES DIFF/ PLT) absolute basophils 48 cells /uL 0-200 normal Not Available [address], [address], 08/25/2024 02:51:33 08/25/19 25 08/25/2024 CBC (INCL UDES DIFF/ PLT) neutrophils 45.9 % normal Not Available [facility] [facility] [id number] [place], [address], 08/25/2024 02:51:33 08/25/19 25 08/25/2024 CBC (INCL UDES DIFF/ PLT) lymphocytes 39.8 % normal Not Available [facility] [address] [place], [address], 08/25/2024 02:51:33 08/25/19 [id number]|2024-09-16 13:49:00|2024-09-16 13:48:00|XMS_ITS|MIKAELA BLAND|External Medical Summaries|[id number]|" Clinical Summary Created on: September 16, 2024 Zhanna Perla : 1960 Sex: Female Author Organization [facility] Address [facility] [place] [address] Care Team Providers Care Marketing Production Coordinator Name Role Phone Unavailable Primary Care Provider Unavailabl e Social History Tobacco Use Types Packs/Day Years Used Date Smoking Tobacco: Never Assessed Comments Unknown Sex and Gender Information Value Date Recorded Sex Assigned at Not on file 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 Gender Identity Not on file Sexual Orientation Not on file Plan of Treatment Health Maintenance Due Date Last Done Comments Colorectal Cancer Screening Colonoscopy (10 Years) 1960 Hepatitis C 1977 DTaP, Tdap and Td Vaccines ( 1 - Tdap) 1978 Mammogram Screening 1999 Pneumococcal Vaccine: 50+ Ye ars (1 of 1 - PCV) 2009 Zoster Vaccines (1 of 2) 2009 COVID-19 Vaccine ( - 2023-2 5 season) 2024 Dexa Scan (General) 2024 RSV Immunization or 60+ Years (1 - 1-dose 75+ series) 2034 Meningococcal B Vaccine Aged Out No l onger eligible based on patient's age to complete this topic Meningococcal Vaccine Aged Out No saman yari eligible based on patient's age to complete this topic RSV Immunizations Under 20 Months Aged Out No longer eligible based on patient's age to complete this topic Insurance [facility] "
== END 2024-09-16 13:42 | disposition home or self-care (01) ==
PROVIDERS: PCP Internal Medicine; Visit Provider Internal Medicine
DX: J18.9 Pneumonia, unspecified organism (principal)
CPT/HCPCS: 71046

== ENCOUNTER 2025-04-14 15:17 | Outpatient (CLI) | payer BC, SELFPAY ==
--- NOTE | ~2025-04-14 | DEXA_ITS ---
Bone Density Report Name: JUAN ALEJANDRA Age: 64 Sex: Female Ethnicity: White Date of : 1960 Indication: postmenopausal osteoporosis; monitoring treatment; parental hip fracture; prior fracture; Referring Provider: GEOVANNA, XUAN Colon Study: Bone densitometry was performed. Exam Date: April 14, 2025 Accession number: [id number] Bone Density: Region BMD T-score Z-score Classification AP Spine(L1-L4) 0.781 -2.4 -0.6 Osteopenia Femoral Neck (Left) 0.514 -3.0 -1.5 Osteoporosis Total Hip (Left) 0.687 -2.1 -0.8 Osteopenia Femoral Neck (Right) 0.527 -2.9 -1.4 Osteoporosis Total Hip (Right) 0.703 -2.0 -0.7 Osteopenia Total Hip Mean 0.695 -2.1 -0.8 Osteopenia World Health Organization criteria for BMD impression classify patients as: Normal (T-score at or above -1.0), Osteopenia (T-score between -1.0 and -2.5), or Osteoporosis (T-score at or below -2.5). 10-year Fracture Risk: FRAX not reported because: Some T-score for Spine Total or Hip Total or Femoral Neck at or below -2.5 Treated for osteoporosis Previous Exams: -- Region Exam Age BMD T-score BMD Change BMD Change Date g/cm2 vs Baseline vs Previous -- AP Spine (L1-L4) 04/14/2025 64 0.781 -2.4 4.4%# 4.4%# 05/20/2016 55 0.749 -2.7 Total Hip(Left) 04/14/2025 64 0.687 -2.1 6.0%* 6.0%* 05/20/2016 55 0.648 -2.4 Total Hip(Right) 04/14/2025 64 0.703 -2.0 -0.7% -0.7% 05/20/2016 55 0.708 -1.9 -- *Denotes significance at 95% confidence level, LSC for AP Spine = 0.022 g/cm2, LSC for Total Hip = 0.027 g/cm2 # Denotes dissimilar scan types or analysis methods Clinical Information Provided by Patient: Has had a low trauma fracture Parent has had a hip fracture Is being treated for osteoporosis Has used the following medications: Fosamax (i.e. alendronate), Vitamin D, Calcium Patient maximum height was 65.75 Menopause Age: 50 No regular weight bearing exercise Onset of menses at age 11 Number of children 2 Missed period for more than 6 months in a row Impression: The patient has established osteoporosis, based on the Left Femoral Neck T-score and the existence of a prior fracture. The patient has risk factors, including: parental hip fracture, previous fracture. Unable to evaluate interval change due to the use of different scan modes. Discussion: PATIENT UNDER TREATMENT WITH NO SIGNIFICANT BMD LOSS SINCE LAST EXAM. In an untreated patient, BMD typically declines with age. A lack of decline or gain is usually a sign that treatment is efficacious and fracture risk is reduced. It is important to ask patients whether they are taking their medications and to encourage continued and appropriate compliance with their osteoporosis therapies to reduce fracture risk. It is also important to review their risk factors and encourage appropriate calcium and vitamin D intakes, exercise, fall prevention and other lifestyle measures. Follow-Up: Consider a repeat BMD and Vertebral Fracture Assessment (VFA) exam in 2 years or sooner if medically necessary, to reassess this patient's status. Reported by: RODRÍGUEZ on 04/14/2025 3:43:00 PM. Reviewed, dictated and finalized at location A.
== END 2025-04-14 15:18 | disposition home or self-care (01) ==
PROVIDERS: PCP Obstetrics & Gynecology Gynecology; Visit Provider Internal Medicine
DX: M81.0 Age-related osteoporosis without current pathological fracture (principal); M85.89 Other specified disorders of bone density and structure, multiple sites; Z78.0 Asymptomatic menopausal state
CPT/HCPCS: 77080